=== PATIENT | female | born 1950 | race Caucasian/White ===

== ENCOUNTER → 2016-07-31 | Day surgery (SDC) | payer BC ==
[2016-07-24 10:02] VITALS: Ht 170.2 cm; Wt 88.6 kg
--- NOTE | 2016-07-27 07:40 | CONSULTATION REPORT ---
DATE OF CONSULTATION: 07/24/2016 PREOPERATIVE CONSULTATION NOTE A 66-year-old female scheduled to undergo right cataract surgery on 07/31/2016. MEDICAL PROBLEMS: Include: 1. Dyspepsia. 2. Anxiety and panic disorder. 3. History of colonic polyps. Underwent a radical right colon and transverse colectomy with primary hbou-qw-tldj anastomosis and repair of an incarcerated umbilical hernia by Dr. Rebollar on 02/24/2015. 4. Left cataract surgery on 10/06/2013. 5. Asymptomatic cholelithiasis CURRENT MEDICATIONS: Include: 1. Aspirin 81 mg daily. 2. Protonix 40 mg every other day. 3. Vitamin D 1000 International Units daily. 4. Advil, she takes about 3 tablets daily as needed. 5. Klonopin 0.5 mg 3 times a day. 6. Benadryl 25 mg at bedtime. Overall, she is doing well. She is still working. She is a nonsmoker. She just took 3 days off work because she was going to lose the days. She is resting at home. She denied any headache. No dizziness, no lightheadedness. Decreased vision. She wears glasses. As noted, she is scheduled for her right cataract surgery. Also, she is going to need laser treatment on her left eye which is scheduled on 08/07/2016. Denied any earache, sore throat or neck pain. No chest pain, pressure or tightness. No shortness of breath. No cough. No pain in her breasts. Her last mammogram was on 06/19/2016. No abdominal pain, no nausea, no vomiting. No problem with her bowel movements. No problem urinating. No pain in her back or extremities. PHYSICAL EXAMINATION: GENERAL: Well developed, in no distress. Her weight 199.8 pounds, height 67 inches, BMI 31.29. VITAL SIGNS: Blood pressure 128/70, pulse 80 with occasional premature beat, temperature 98.2. SKIN: Warm and dry. No rash. HEENT: Status post left cataract surgery. Decreased vision right eye. Normal oronasal and pharyngeal mucosa. Normal external ear canals and tympanic membranes. HEART: Regular heart sounds. No murmur, rub or gallop. LUNGS: Clear. ABDOMEN: Soft, nontender. No organomegaly, no masses. Surgical scars. BACK: No spinal tenderness. EXTREMITIES: No edema, clubbing or cyanosis. No joint or muscle tenderness. Good pulses. NEUROLOGIC: She is alert and oriented without evidence of any deficits. ASSESSMENT: 1. Right cataract. She is scheduled for surgery on 07/31/2016. 2. History of left cataract surgery on 10/06/2013. 3. Anxiety and panic disorder, stable. 4. Osteoarthritis. 5. History of colonic polyps, requiring surgery. She had a radical right colon and transverse colectomy with primary stli-bb-wqef anastomosis on 02/24/2015. At the same time, she had repair of an incarcerated umbilical hernia. 6. Overweight. 7. Asymptomatic cholelithiasis PLAN: 1. She is doing quite well. Her condition is quite stable. She has had previously documented PVCs. She has had a stress test in 2014. 2. There is no contraindication to her anticipated surgical procedure. [place]
[~2016-07-31] VITALS: Ht 170.2 cm; Wt 88.6 kg
[~2016-07-31] MED LIST: 500ML BSS 0.3ML EPI 1:1000PF IRRIG ONE; ACETAMINOPHEN 325 MG TAB PO PRN; AMOX500C3 PO; AMVISC PLUS 0.8ML SYRINGE INT OCU ONE; ASPI81TA28 PO; ATROPINE SULFATE 0.1 MG/ML 5ML SYR IV PRN; BND25 PO; BSS FLUSH ONE; CARB0.5D28 OPB; CHOL100010 PO; CHOL100027 PO; CLON0.5T3 PO; CYCL10TA6 PO; DIPH25CA65 PO; EpHEDrine SULFATE INJ 50 MG/ML AMP IV PRN; EpINEphrine INJ 1MG/ML AMP 1 MG/ML AMP ONE; FENTANYL CITRATE INJ 50 MCG/1 ML 2 ML VIAL IV PRN; FLUMAZENIL 0.1 MG/1 ML 10 ML VIAL IV PRN; HYDROmorphone INJ 2 MG/ML SYR/VIAL IV PRN; IBUP-1050 PO; LABETALOL HCL IV 5 MG/ML 20ML IV PRN; LACTATED RINGER'S 1000ML 500 ML IV SCH; LIDOCAINE 3.5% OPH GEL PER APPLICATION CHARGE ONE; LIDOCAINE HCL 1% MPF 2 ML VIAL ONE; MAGNESIUM PO; MEPERIDINE HCL 25 MG/ML CARP IV PRN; MIDAZOLAM HCL 1 MG/ML 2ML VIAL ONE; NALOXONE HCL 0.4 MG/1 ML VIAL/CARP IV PRN; NF34 TOP; OCUCOAT 1 ML SOLN IO ONE; ONDANSETRON INJ 2 MG/ML 2 ML VIAL IV PRN; OXYC-57 PO; OXYC1TAB3 PO; PANT40TA PO; PHENYLEPHRINE 100MCG/ML 5ML SYR IV PRN; POVIDONE-IODINE OP SOLN 30 ML BTL ONE; PROPARACAINE 0.5% OP SOLN PER DROP CHARGE OPR SCH; TOBRAMYCIN/DEXAMETHASONE OPH OINT PER APPLN CHARGE ONE
[2016-07-31] MEDS: PHENYLEPHRINE HCL 2.5% OP SOLN PER DROP CHARGE OPR SCH ×2 (06:31→06:36)
[2016-07-31] MEDS: TROPICAMIDE 1% OP SOLN PER DROP CHARGE OPR SCH ×2 (06:32→06:37)
[2016-07-31] MEDS: CYCLOPENTOLATE HCL 1% OP SOLN PER DROP CHARGE OPR SCH ×2 (06:33→06:38)
[2016-07-31] MEDS: KETOROLAC 0.5% OP SOLN PER DROP CHARGE OPR SCH ×2 (06:34→06:39)
[2016-07-31] MEDS: GATIFLOXACIN OP SOLN PER DROP CHARGE OPR SCH ×2 (06:35→06:45)
--- NOTE | 2016-07-31 06:57 | History & Physical Bridge - SC ---
H&P Re-Evaluation Bridge Note: I have examined the patient, reviewed the History & Physical and in the interval since the performance of the History & Physical I have noted the following changes of clinical significance: No changes noted
--- NOTE | 2016-07-31 07:21 | [facility] Operative Report ---
Operative Report 1. PREOPERATIVE DIAGNOSIS: Cataract of the right eye. 2. POSTOPERATIVE DIAGNOSIS: Same. 3. PROCEDURE: Phacoemulsification with intraocular lens implantation of the right eye. SURGEON: Dr. Blake Black. ANESTHESIA: Topical Lidocaine gel, 1% Non- Preserved intracameral Lidocaine, and monitored intravenous sedation. INDICATIONS FOR THE PROCEDURE: The patient is a 66 - year-old female with a history of cataract of the right eye causing significant visual impairment. The details of the proposed procedure were explained to the patient who asked appropriate questions and following discussion of all risks, benefits and alternatives agreed to have the procedure done. 4. OPERATION AND FINDINGS: DESCRIPTION OF PROCEDURE: After informed consent was obtained, the patient was brought to the Operating Room at the [facility]. The patient was placed in a supine position and then the right eye was prepped and draped in the usual sterile fashion for intraocular surgery. A drop of topical Lidocaine gel was placed in the operative eye. A wire lid speculum was then placed in the fornices. A corneal paracentesis was then created temporally. The Non-Preserved Lidocaine was then instilled into the anterior chamber. The anterior chamber was then pressurized with viscoelastic. A 2.0 mm clear corneal incision was then created temporally. A cystotome was inserted into the anterior chamber and used to create a tear in the anterior lens capsule. This capsular tear was then used to create a small flap and the flap was dragged in a counterclockwise direction in order to create a continuous curvilinear capsulorrhexis. Hydrodissection was accomplished with balanced salt solution. Phacoemulsification of the lens nucleus was then performed in a standard ljoune-rml-rbhedjp technique. The phaco time was 29 seconds with an average power of 10 %. The remaining cortical material was removed using irrigation aspiration. The capsular bag was then filled with viscoelastic. A [employer] MI60L +20.0 diopters lens was then loaded into the injector and injected into the capsular bag. The remaining viscoelastic was removed with the irrigation aspiration handpiece. The wound was hydrated and then checked and found to be watertight. The intraocular pressure was checked and found to be adequate. The wire lid speculum was removed and the patient's face was cleaned and dried. TobraDex ointment was placed in the inferior fornix. The patient was discharged to the Recovery Room having tolerated the procedure well. There were no complications. The patient will be seen tomorrow in the office for follow-up. I attest to the content of the Intraoperative Record and any orders documented therein. Any exceptions are noted below.
--- NOTE | 2016-07-31 07:21 | Discharge Instructions-SurgCtr ---
Discharge Instructions Visit Reason for Visit: Cataract Right Eye Discharge Discharge Diagnosis / Problem: cataract Discharge Goals Goal(s): Improve function Activity Recommendations Activity Limitations: per Instructions/Follow-up section Anesthesia . Post Anesthesia Instructions: If you have had General Anesthesia or IV Sedation: * Do not drive today. * Resume driving when surgeon permits. * Do not make important decisions or sign legal documents today. * Call surgeon for: 1. Temperature elevations greater than 101 degrees F. 2. Uncontrollable pain. 3. Excessive bleeding. 4. Persistent nausea and vomiting. 5. Medication intolerance (nausea, vomiting or rash). * For nausea and vomiting use only clear liquids such as: tea, soda, bouillon until nausea subsides, then gradually increase diet as tolerated. * If you have any concerns or questions, call your surgeon's office. If physician is unavailable and it is an emergency, call 911 or go to the nearest emergency room. . Instructions / Follow-Up Instructions / Follow-Up ACTIVITY RECOMMENDATIONS: * No strenuous lifting, jogging or running for 4 days * No swimming or yard work for 1 week. * Limited bending is permitted, such as putting on shoes. RETURN TO SCHOOL/WORK: No work until seen by physician in office. MEDICATIONS: Resume previous medications unless instructed otherwise by your surgeon. This includes eye drops for glaucoma. Zymaxid/Gatifloxacin (brown cap) - one drop every 2 hours until bedtime Nevanac/Ilevro/Prolensa/Ketorolac (steiner cap) - one drop every 4 hours until bedtime Prednisolone (white/pink cap, SHAKE WELL) - one drop every 2 hours until bedtime Starting tomorrow - all 3 drops every 4 hours until seen in the office Optive drops - as needed for discomfort SPECIAL CARE INSTRUCTIONS: * Wear eyeshield when sleeping, for four nights. * You may wear your own glasses or sunglasses while awake. * You may read or watch TV * You may shower and wash your face, but be gentle around the eye and pat dry. * Blurry vision and mild irritation are normal. * Call office if pain is more severe or vision becomes dark at . FOLLOW UP VISIT: Follow-up with Dr Black tomorrow. Diet Recommendations Home Diet: resume previous diet Procedures Procedures Performed: Right Cataract Phacoemulsification With Intraocular Lens Implant Pending Studies Studies pending at discharge: no Medical Emergencies . Who to Call and When: Medical Emergencies: If at any time you feel your situation is an emergency, please call 911 immediately. . Non-Emergent Contact Non-Emergency issues call your: [employer] . . "Provider Documentation" section prepared by Blake Black.
[2016-07-31 07:29] VITALS: TEMP 36.9
--- NOTE | 2016-07-31 07:29 | Anesthesia Progress Nt - [facility] ---
Anesthesia Post Op Note Date & Time Jul 31, 2016 at 07:29 Vital Signs Pain Intensity: 0 Vital Signs Past 12 Hours Date Time Temp Pulse Resp B/P Pulse Ox O2 Delivery O2 Flow Rate FiO2 07/31/16 06:31 36.7 52 16 165/76 96 Room Air Notes Mental Status: alert / awake / arousable, participated in evaluation Pt Amnestic to Procedure: Yes Nausea / Vomiting: adequately controlled Pain: adequately controlled Airway Patency, RR, SpO2: stable & adequate BP & HR: stable & adequate Hydration State: stable & adequate Anesthetic Complications: no major complications apparent
[2016-07-31 07:45] VITALS: BP 138/62; PULSE 59; O2SAT 96
== END | disposition home or self-care (01) ==
LOC: X.SURG 06:07
PROVIDERS: ATTEND Ophthalmology
DX: H26.9 Unspecified cataract (principal); H54.7 Unspecified visual loss; F41.9 Anxiety disorder, unspecified; Z86.010 Personal history of colon polyps; Z90.49 Acquired absence of other specified parts of digestive tract

== ENCOUNTER 2016-10-17 21:42 | Emergency (ER) | payer BC ==
[~2016-10-17] VITALS: Ht 175.3 cm; Wt 89.9 kg
[~2016-10-17 21:42] MED LIST changes: -500ML BSS 0.3ML EPI 1:1000PF IRRIG ONE; -ACETAMINOPHEN 325 MG TAB PO PRN; -AMOX500C3 PO; -AMVISC PLUS 0.8ML SYRINGE INT OCU ONE; -ATROPINE SULFATE 0.1 MG/ML 5ML SYR IV PRN; -BND25 PO; -BSS FLUSH ONE; -CHOL100027 PO; -CYCL10TA6 PO; +DIPH25CA5 PO; -DIPH25CA65 PO; -EpHEDrine SULFATE INJ 50 MG/ML AMP IV PRN; -EpINEphrine INJ 1MG/ML AMP 1 MG/ML AMP ONE; -FENTANYL CITRATE INJ 50 MCG/1 ML 2 ML VIAL IV PRN; -FLUMAZENIL 0.1 MG/1 ML 10 ML VIAL IV PRN; -HYDROmorphone INJ 2 MG/ML SYR/VIAL IV PRN; -LABETALOL HCL IV 5 MG/ML 20ML IV PRN; -LACTATED RINGER'S 1000ML 500 ML IV SCH; -LIDOCAINE 3.5% OPH GEL PER APPLICATION CHARGE ONE; -LIDOCAINE HCL 1% MPF 2 ML VIAL ONE; -MAGNESIUM PO; -MEPERIDINE HCL 25 MG/ML CARP IV PRN; -MIDAZOLAM HCL 1 MG/ML 2ML VIAL ONE; -NALOXONE HCL 0.4 MG/1 ML VIAL/CARP IV PRN; -OCUCOAT 1 ML SOLN IO ONE; -ONDANSETRON INJ 2 MG/ML 2 ML VIAL IV PRN; -OXYC-57 PO; -OXYC1TAB3 PO; -PHENYLEPHRINE 100MCG/ML 5ML SYR IV PRN; -POVIDONE-IODINE OP SOLN 30 ML BTL ONE; -PROPARACAINE 0.5% OP SOLN PER DROP CHARGE OPR SCH; -TOBRAMYCIN/DEXAMETHASONE OPH OINT PER APPLN CHARGE ONE
[2016-10-17 21:54] VITALS: TEMP 36.9; Ht 175.3 cm; Wt 89.9 kg
[2016-10-17] MEDS ORDERED: OXYCODONE HCL IR 5 MG TAB (IMMEDIATE RELEASE) PO STA (22:23)
[2016-10-17] MEDS ORDERED: CYCLOBENZAPRINE HCL 10 MG TAB PO STA (22:23)
[2016-10-17] MEDS ORDERED: CHOL100027 PO (22:27)
[2016-10-17 22:48] LABS: URINE APPEARANCE CLEAR (CLEAR); URINE BILIRUBIN NEG (NEG); URINE COLOR YELLOW; URINE EPITHELIAL CELL AUTO 20-30 /lpf (0-5); URINE NITRITE NEG (NEG); UROBILINOGEN NEG (NEG); ZZUR CULT IF INDIC CLEAN CATCH YES
[2016-10-17 22:50] LABS: MANUAL MICROSCOPIC REQUIRED? NO; REVIEW REQ? NO
--- NOTE | 2016-10-17 22:55 | DIAGNOSTIC IMAGING REPORT ---
LUMBAR SPINE 5 VIEWS HISTORY: Pain low back pain COMPARISON: None. FINDINGS: Moderate scoliosis. Significant degenerative disc changes throughout. No evidence for compression deformity. IMPRESSION: Scoliosis. Significant degenerative disc change. No acute process. Electronically signed by: Chemo Jones M.D. 10/17/2016 10:53 PM Dictated Date/Time: 10/17/2016 10:52 PM
[2016-10-17] MEDS ORDERED: MoRPHine SULFATE 10 MG/ML CARP/VIAL IV STA (23:26)
[2016-10-17] MEDS ORDERED: ONDANSETRON INJ 2 MG/ML 2 ML VIAL IV STA (23:26)
[2016-10-18] MEDS ORDERED: OXYC1TAB3 PO (00:09)
[2016-10-18] MEDS ORDERED: CYCL10TA6 PO (00:12)
--- NOTE | 2016-10-18 00:13 | EMERGENCY ROOM VISIT NOTE ---
History First contact with patient: 22:00 Chief Complaint: BACK PAIN Stated Complaint: LOWER LEFT BACK PAIN History of Present Illness The patient is a 66 year old female who presents to the Emergency Room with complaints of left low back pain which started on Saturday. The patient states that she went to work on Saturday and then she came home and took a mile walk and after she was finished walking she started getting pain in the left lower back. The patient denies any pain radiating down her legs or any numbness and tingling. The patient denies any fever. Patient denies any urinary symptoms of frequency, urgency, dysuria or hematuria. The patient denies a history of kidney stones. The patient does admit to some nausea but denies any vomiting. The patient states that she went to the chiropractor today and had an adjustment without any relief. He did an x-ray and told her that he was surprised she was not in more significant pain. She has a follow-up appointment scheduled on Saturday. Review of Systems 10 system review was performed and was negative unless stated otherwise history of present illness. Past Medical/Surgical History Medical Problems: (1) History of - hypertension Family History FHx: gallbladder disease Kidney disease Kidney stones Social History Smoking Status: Former Smoker Alcohol Use: none Drug Use: none Marital Status: Housing Status: lives with family Occupation Status: retired Current/Historical Medications Scheduled Aspirin (Aspirin Ec), 81 MG PO QAM Cholecalciferol (Vitamin D 1000 Unit), 1,000 INTER.UNIT PO QAM Clonazepam (Klonopin), 0.5 MG PO TID Diphenhydramine Hcl (Benadryl), 25 MG PO HS Scheduled PRN Carboxymethylcellulose Sodium (Refresh Tears), 1 DROP OPB DAILY PRN for DRY EYES Clobetasol Propionate (Clobetasol Propionate), 1 APPLN TOP 2XWK PRN for PRN Ibuprofen (Advil), 600 MG PO QAM PRN for Pain Pantoprazole (Protonix), 40 MG PO DAILY PRN for PRN Allergies Coded Allergies: BEE STING (Verified Allergy, Intermediate, ITCHY, STARTS TO BLACK OUT, ) Celecoxib (Verified Allergy, Intermediate, RASH, 10/17/16) Corticosteroids (Verified Adverse Reaction, Intermediate, FEELS "WEIRD.", 10/17/16) Naproxen (Verified Adverse Reaction, Intermediate, HEART RACES, 10/17/16) Physical Exam Vital Signs Date Time Temp Pulse Resp B/P Pulse Ox O2 Delivery O2 Flow Rate FiO2 10/17/16 23:26 59 18 166/81 96 Room Air 10/17/16 21:54 36.9 62 18 197/91 95 Room Air Physical Exam PHYSICAL EXAM: Vital Signs normal: Reviewed Nurse's notes and agree. GENERAL: 66-year-old white female appears in no acute distress. MENTAL STATUS: Alert and oriented in no acute distress. LUNGS: Clear auscultation without wheezes rales or rhonchi. CARDIAC: Regular rate and rhythm without murmur. BACK: No CVA tenderness noted. ABDOMEN: Positive bowel sounds all 4 quadrants soft, nontender to palpation without organomegaly or masses. LUMBAR SPINE: Scoliosis noted Patient is nontender to palpation over the spinous processes. She is tender to palpation over the left paravertebral region, right side nontender. Limited range of motion in all directions secondary to pain. . Muscle strength is 5 out of 5 bilateral lower extremities and symmetrical. NEURO: Patient is able to heel and toe walk without difficulty. I lateral patellar and Achilles reflexes are 2+. Sensation is intact to pinprick bilateral lower extremities. Negative straight leg raise bilaterally. Medical Decision & Procedures ER Provider Diagnostic Interpretation: LUMBAR SPINE 5 VIEWS HISTORY: Pain low back pain COMPARISON: None. FINDINGS: Moderate scoliosis. Significant degenerative disc changes throughout. No evidence for compression deformity. IMPRESSION: Scoliosis. Significant degenerative disc change. No acute process. Electronically signed by: Chemo Jones M.D. 10/17/2016 10:53 PM Laboratory Results Test 10/17/16 22:20 Urine Color YELLOW Urine Appearance CLEAR (CLEAR) Urine pH 7.0 (4.5-7.5) Urine Specific [place] 1.010 (1.000-1.030) Urine Protein NEG (NEG) Urine Glucose (UA) NEG (NEG) Urine Ketones NEG (NEG) Urine Occult Blood NEG (NEG) Urine Nitrite NEG (NEG) Urine Bilirubin NEG (NEG) Urine Urobilinogen NEG (NEG) Urine Leukocyte Esterase LARGE (NEG) Urine WBC (Auto) 10-30 /hpf (0-5) Urine RBC (Auto) 0-4 /hpf (0-4) Urine Hyaline Casts (Auto) 1-5 /lpf (0-5) Urine Epithelial Cells (Auto) 20-30 /lpf (0-5) Urine Bacteria (Auto) 1+ (NEG) Medications Administered Medications (Trade) Dose Ordered Sig/Kate Route Start Time Stop Time Status Last Admin Dose Admin Cyclobenzaprine HCl (Flexeril Tab) 10 mg NOW STAT PO 10/17/16 22:23 10/17/16 22:26 DC 10/17/16 22:45 10 MG Oxycodone HCl (Roxicodone Immediate Rel Tab) 10 mg NOW STAT PO 10/17/16 22:23 10/17/16 22:26 DC 10/17/16 22:44 10 MG Morphine Sulfate (MoRPHine SULFATE INJ) 6 mg NOW STAT IV 10/17/16 23:26 10/17/16 23:27 DC 10/17/16 23:32 6 MG Ondansetron HCl (Zofran Inj) 4 mg NOW STAT IV 10/17/16 23:26 10/17/16 23:27 DC 10/17/16 23:32 4 MG ED Course The patient was evaluated. The patient was given Flexeril 10 mg by mouth and OxyIR 10 mg by mouth for pain. X-rays of the lumbar spine were ordered and interpreted by the radiologist and myself as above with findings of scoliosis and moderate degenerative changes.. Urinalysis was ordered and revealed positive leukocytes and bacteria although there was some evidence of contamination with epithelial cells. Urine will be sent for culture. The patient was informed of all findings and was reevaluated. The patient states she did not have any change in pain. The patient was therefore given morphine 6 mg IV and Zofran 4 mg IV for associated nausea. I also discussed with the patient that there was a large amount of stool within her colon and that she should start taking MiraLAX daily. The patient verbalized understanding. The patient was again reevaluated and was feeling slightly better. The patient thought she was able to go home at this time. The patient was discharged home in stable condition. Medical Decision Differential diagnosis include muscular strain, osteoarthritis, kidney stone, pyelonephritis, UTI, constipation Impression Primary Impression: Low back pain Departure Information Dispostion Home / Self-Care Condition GOOD Prescriptions Cyclobenzaprine Hcl (FLEXERIL) 10 Mg Tab 10 MG PO TID for 7 Days, #21 TAB Prov: Pat Jones, MILADYS 4/20/17 Oxycodone Immediate Rel Tab (ROXICODONE IR) 5 Mg Tab 1-2 TAB PO Q6 Y for Pain, #20 TAB Prov: Pat Jones PA-C 10/18/16 Referrals Isaac Alexander M.D. (PCP) Forms HOME CARE DOCUMENTATION FORM, IMPORTANT VISIT INFORMATION Patient Instructions My [facility] Additional Instructions There is not a definitive etiology for your low back pain. Rest as much as possible but do not stay in any one position for extended period of time. Try ice and/or heat intermittently whichever makes it feel better. Take Flexeril as directed. Take OxyIR as needed for pain. Do not drive while taking the OxyIR. Recommend taking MiraLAX daily to prevent constipation. Call in 36 hours for your urine culture results. Recommend follow-up with your family physician in 2 days for recheck. I would refrain from seeing the chiropractor until rechecked by her family doctor in 2 days. If symptoms worsen in the interim, return to ER.
[2016-10-18 00:26] VITALS: BP 137/61; PULSE 55; O2SAT 93
[2016-10-18] MEDS ORDERED: NORCO 5/325MG HOME PACK PO ONE (00:30)
[2017-01-14] MEDS ORDERED: MAGNESIUM PO (08:20)
[2017-01-14] MEDS ORDERED: DIPH25CA65 PO (08:20)
[2017-01-14] MEDS ORDERED: AMOX500C3 PO (08:28)
== END 2016-10-18 00:28 | disposition home or self-care (01) ==
LOC: C.EDB 21:43
DX: M54.5 Low back pain (principal); I10 Essential (primary) hypertension; Z87.891 Personal history of nicotine dependence; Z79.82 Long term (current) use of aspirin; Z79.899 Other long term (current) drug therapy; Z79.83 Long term (current) use of bisphosphonates; Z84.1 Family history of disorders of kidney and ureter; Z88.8 Allergy status to other drugs, medicaments and biological substances; Z91.030 Bee allergy status

== ENCOUNTER 2016-10-21 15:06 | Emergency (ER) | payer BC ==
[~2016-10-21] VITALS: Ht 170.2 cm; Wt 90.0 kg
[~2016-10-21 15:06] MED LIST changes: -CHOL100010 PO; +CHOL100027 PO; +CYCL10TA6 PO; +OXYC1TAB3 PO
[2016-10-21 15:30] VITALS: TEMP 37; Ht 170.2 cm; Wt 90.0 kg
[2016-10-21] MEDS ORDERED: OXYC1TAB3 PO (15:53)
[2016-10-21] MEDS ORDERED: KETOROLAC TROMETHAMINE 30 MG/ML VIAL IV STA (16:14)
[2016-10-21] MEDS ORDERED: SODIUM CHLORIDE 0.9% 1000ML 1,000 ML IV STA (16:14)
[2016-10-21] MEDS ORDERED: SODIUM CHLORIDE 0.9% 1000ML 250 ML IV STA (16:14)
--- NOTE | 2016-10-21 16:25 | EMERGENCY ROOM VISIT NOTE ---
History Report prepared by Arlene: Navin Bailey Under the Supervision of: Dr. Zak Carreno M.D. First contact with patient: 16:06 Chief Complaint: BACK PAIN Stated Complaint: PAIN LOWER LEFT BACK- KIDNEY AREA History of Present Illness The patient is a 66 year old female who presents to the Emergency Room with complaints of persistent left lower back pain that started six days ago. The pain sometimes radiates to the hip and groin area and is rated 8/10 in severity. She is concerned that the pain is coming form her left kidney. The patient was in the ED four nights ago and tested negative for UTI. The patient was started on Cipro three days ago. The patient also notes urinary urgency and feeling like she cannot empty her bladder. She denies hematuria, burning with urination, or weakness or numbness of the legs, or rashes. She does complain of intermittent chills and nausea but denies specific fevers or vomiting. She denies recent trauma or injury of the back. The patient denies any personal history of kidney disease. She does have a family history of kidney stones. She has a history of arthritis and is s/p partial colectomy for polyps. The patient is not on any blood thinners other than baby aspirin. She follows up with Dr. Nelson. Source of History: patient Onset: six days ago Position: back (lower) Symptom Intensity: 8/10 Timing: other (persistent) Associated Symptoms: + chills, + nausea, + urinary symptoms (urgency, no hematuria or dysuria), No fevers, No numbness, No rash, No vomiting, No weakness Review of Systems See HPI for pertinent positives & negatives. A total of 10 systems reviewed and were otherwise negative. Past Medical & Surgical Medical Problems: (1) History of - hypertension Old medical records were reviewed. Nurse's notes were reviewed and I agree with. Family History FHx: gallbladder disease Kidney disease Kidney stones Social History Smoking Status: Never Smoker Alcohol Use: none Drug Use: none Marital Status: Housing Status: lives with family Occupation Status: retired Current/Historical Medications Scheduled Aspirin (Aspirin Ec), 81 MG PO QAM Cholecalciferol (Vitamin D 1000 Unit), 1,000 INTER.UNIT PO 2XWK Clonazepam (Klonopin), 0.5 MG PO TID Diphenhydramine Hcl (Benadryl), 25 MG PO HS Oxycodone Immediate Rel Tab (Roxicodone Ir), 1 TAB PO HS Scheduled PRN Carboxymethylcellulose Sodium (Refresh Tears), 1 DROP OPB DAILY PRN for DRY EYES Clobetasol Propionate (Clobetasol Propionate), 1 APPLN TOP WK PRN for PRN Ibuprofen (Advil), 600 MG PO QAM PRN for Pain Pantoprazole (Protonix), 40 MG PO Q2D PRN for PRN Allergies Coded Allergies: BEE STING (Verified Allergy, Intermediate, ITCHY, STARTS TO BLACK OUT, ) Celecoxib (Verified Allergy, Intermediate, RASH, 10/21/16) Corticosteroids (Verified Adverse Reaction, Intermediate, FEELS "WEIRD.", 10/21/16) Naproxen (Verified Adverse Reaction, Intermediate, HEART RACES, 10/21/16) Physical Exam Vital Signs Date Time Temp Pulse Resp B/P Pulse Ox O2 Delivery O2 Flow Rate FiO2 10/21/16 18:09 62 18 154/74 98 Room Air 10/21/16 17:01 77 16 151/73 10/21/16 15:30 37.0 63 20 182/74 93 Room Air Physical Exam General: Non ill appearing older female in no acute distress, breathing comfortably on room air. Normal speech HEENT: Normal cephalic atraumatic. Pupils are equal round and reactive to light. Extraocular movements are intact. Oropharynx is pink with moist mucous membranes. No swelling of the mouth lips or tongue. Neck: Supple with a midline trachea. No meningeal signs or stiffness, no JVD or bruits. No Stridor. Chest: Clear to auscultation bilaterally. No wheezes or rhonchi. No increased work of breathing. Heart: regular rate and rhythm. Abdomen: Soft nontender, nondistended without rebound guarding or rigidity. No palpable masses, no redness or warmth. Extremities: No cyanosis clubbing or edema. No calf tenderness or assymetry Spine/Back. Non tender to palpation. No CVA tenderness. No rashes. Skin: Good turgor without rashes. Neurologic exam: Cranial nerves two through 12 are intact. Motor and sensation are intact and symmetrical throughout. Medical Decision & Procedures ER Provider Diagnostic Interpretation: Radiology results as stated below per my review and radiologist interpretation: ABDOMEN AND PELVIS CT WITHOUT CONTRAST CT DOSE: 1311.77 mGy.cm HISTORY: eval for stone, left flank pain TECHNIQUE: Multiaxial CT images of the abdomen and pelvis were performed without the use of intravenous and oral contrast according to the standard department stone protocol. COMPARISON STUDY: Abdomen and pelvis CT 04/11/2016. FINDINGS: No renal stones or hydronephrosis. 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 The duplicated ureters likely joint proximal to the ureterovesical junction. The unenhanced liver, spleen, adrenal glands, and pancreas are unremarkable. There is a 7 mm gallstone. There is a small diverticulum at the second portion of the duodenum. The bladder is unremarkable. Prior hysterectomy. Suboptimal evaluation for bowel pathology due to the lack of intravenous and oral contrast. However, there is no definite bowel wall thickening or obstruction. Postoperative changes consistent with prior right hemicolectomy. The lung bases are clear. No pneumoperitoneum. No pneumatosis. Interval development of a midline infraumbilical hernia containing a short segment of small bowel. IMPRESSION: 1. No renal stones or hydronephrosis. 2. Suboptimal evaluation for bowel pathology due to the lack of intravenous and oral contrast. However, there is no definite bowel wall thickening or obstruction. Interval development of a midline infraumbilical hernia containing a short segment of small bowel. 3. Cholelithiasis. 4. Postoperative changes as described above. Electronically signed by: Sang Mercer M.D. 10/21/2016 5:46 PM Dictated Date/Time: 10/21/2016 5:34 PM Laboratory Results 10/21/16 16:55 Red Blood Count 4.36, Mean Corpuscular Volume 90.4, Mean Corpuscular Hemoglobin 29.8, Mean Corpuscular Hemoglobin Concent 33.0, Mean Platelet Volume 9.6, Neutrophils (%) (Auto) 50.6, Lymphocytes (%) (Auto) 36.5, Monocytes (%) (Auto) 8.5, Eosinophils (%) (Auto) 3.6, Basophils (%) (Auto) 0.7, Neutrophils # (Auto) 3.56, Lymphocytes # (Auto) 2.57, Monocytes # (Auto) 0.60, Eosinophils # (Auto) 0.25, Basophils # (Auto) 0.05 10/21/16 16:55 Test 10/21/16 16:55 10/21/16 17:03 White Blood Count 7.04 K/uL (4.8-10.8) Red Blood Count 4.36 M/uL (4.2-5.4) Hemoglobin 13.0 g/dL (12.0-16.0) Hematocrit 39.4 % (37-47) Mean Corpuscular Volume 90.4 fL (80-100) Mean Corpuscular Hemoglobin 29.8 pg (25-34) Mean Corpuscular Hemoglobin Concent 33.0 g/dl (32-36) Platelet Count 298 K/uL (130-400) Mean Platelet Volume 9.6 fL (7.4-10.4) Neutrophils (%) (Auto) 50.6 % Lymphocytes (%) (Auto) 36.5 % Monocytes (%) (Auto) 8.5 % Eosinophils (%) (Auto) 3.6 % Basophils (%) (Auto) 0.7 % Neutrophils # (Auto) 3.56 K/uL (1.4-6.5) Lymphocytes # (Auto) 2.57 K/uL (1.2-3.4) Monocytes # (Auto) 0.60 K/uL (0.11-0.59) Eosinophils # (Auto) 0.25 K/uL (0-0.5) Basophils # (Auto) 0.05 K/uL (0-0.2) RDW Standard Deviation 46.5 fL (36.4-46.3) RDW Coefficient of Variation 14.1 % (11.5-14.5) Immature Granulocyte % (Auto) 0.1 % Immature Granulocyte # (Auto) 0.01 K/uL (0.00-0.02) Anion Gap 6.0 mmol/L (3-11) Est Creatinine Clear Calc Drug Dose 52.4 ml/min Estimated GFR () 54.2 Estimated GFR (Non- 46.7 BUN/Creatinine Ratio 13.8 (10-20) Calcium Level 9.3 mg/dl (8.5-10.1) Urine Color YELLOW Urine Appearance CLEAR (CLEAR) Urine pH 6.5 (4.5-7.5) Urine Specific [place] 1.011 (1.000-1.030) Urine Protein NEG (NEG) Urine Glucose (UA) NEG (NEG) Urine Ketones NEG (NEG) Urine Occult Blood NEG (NEG) Urine Nitrite NEG (NEG) Urine Bilirubin NEG (NEG) Urine Urobilinogen NEG (NEG) Urine Leukocyte Esterase SMALL (NEG) Urine WBC (Auto) 1-5 /hpf (0-5) Urine RBC (Auto) 0-4 /hpf (0-4) Urine Hyaline Casts (Auto) 0 /lpf (0-5) Urine Epithelial Cells (Auto) 20-30 /lpf (0-5) Urine Bacteria (Auto) NEG (NEG) Date/Time Source Procedure Growth Status 10/21/16 17:03 Urine , Clean Catch Urine Culture - Final THREE TYPES OF ORGANSIMS PRESENT, ALL... Complete Laboratory studies as stated above per my review. Medications Administered Medications (Trade) Dose Ordered Sig/Kate Route Start Time Stop Time Status Last Admin Dose Admin Sodium Chloride 250 ml @ 999 mls/hr Q16M STAT IV 10/21/16 16:14 10/21/16 16:29 DC 10/21/16 17:00 999 MLS/HR Sodium Chloride (Nss 1000ml) 1,000 ml @ 100 mls/hr Q10H STAT IV 10/21/16 16:14 10/21/16 18:25 DC 10/21/16 16:14 100 MLS/HR Ketorolac Tromethamine (Toradol Inj) 30 mg NOW STAT IV 10/21/16 16:14 10/21/16 16:16 DC 10/21/16 17:00 30 MG ED Course 1607: Past medical records reviewed. The patient was evaluated in room C4, and a complete history and physical examination were performed. 1614: Toradol 30 mg IV, NSS 1000 ml @ 100 mls/hr, NSS 250 ml @ 999 mls/hr. 1735: The patient is resting comfortably. 1800: Reassessed the patient. Discussed the discharge instructions with her. She verbalized understanding and agreement. The patient is ready for discharge. Medical Decision Differential diagnosis includes lumbar disc disease, musculoskeletal pain, kidney stone, kidney infection, aneurysm, electrolyte or metabolic abnormality. This patient comes in as described above. She is having ongoing left flank pain. She was concerned that it could be her kidney so returns for further evaluation. She's had no fever or chills and it is worse with movement. She does has ahistory of scoliosis. She's had nothing to suggest cauda equina syndrome. She has no fever or chills or signs of infection. IV access established blood work was obtained I did a CAT scan. There is no evidence suggest obstructive uropathy or acute renal problems. She did receive Toradol IV and is feeling much better. She has normal renal function. She is on antibiotics which I encouraged her to finish. She should return if: worsening of symptoms, fever or chills, any new problems or concerns. She should follow- up with her regular doctor medical days for recheck. She was happy with plan discharged to home. Impression Primary Impression: Left-sided back pain Scribe Attestation The scribe's documentation has been prepared under my direction and personally reviewed by me in its entirety. I confirm that the note above accurately reflects all work, treatment, procedures, and medical decision making performed by me. Departure Information Dispostion Home / Self-Care Referrals No Doctor, Assigned (PCP) Forms HOME CARE DOCUMENTATION FORM, IMPORTANT VISIT INFORMATION Patient Instructions My [facility] Additional Instructions Rest. Continue your current antibiotics and pain medication as previously directed. Return if: Worsening of symptoms, not tolerating fluids, any new problems or concerns. Follow-up with your doctor this week for recheck
[2016-10-21 17:03] LABS: BASO % 0.7 %; BASO ABS # 0.05 K/uL (0-0.2); COMPLETE YES; EOS % 3.6 %; HEMATOCRIT 39.4 % (37-47); IG% 0.1 %; LYMPH % 36.5 %; LYMPH ABS # 2.57 K/uL (1.2-3.4); MEAN CELL VOLUME 90.4 fL (80-100); MEAN CORPUSCULAR HEMOGLOBIN 29.8 pg (25-34); MEAN PLATELET VOLUME 9.6 fL (7.4-10.4); MONO % 8.5 %; NEUT % 50.6 %; PLATELET COUNT 298 K/uL (130-400); RED BLOOD COUNT 4.36 M/uL (4.2-5.4); WHITE BLOOD COUNT 7.04 K/uL (4.8-10.8)
[2016-10-21 17:18] LABS: BUN/CREATININE RATIO 13.8 (10-20); CALCIUM 9.3 mg/dl (8.5-10.1); CREATININE 1.2 mg/dl (0.60-1.20); POTASSIUM 3.8 mmol/L (3.5-5.1)
[2016-10-21 17:24] LABS: URINE APPEARANCE CLEAR (CLEAR); URINE BILIRUBIN NEG (NEG); URINE COLOR YELLOW; URINE EPITHELIAL CELL AUTO 20-30 /lpf (0-5); URINE NITRITE NEG (NEG); URINE PH 6.5 (4.5-7.5); URINE SPECIFIC GRAVITY 1.011 (1.000-1.030); UROBILINOGEN NEG (NEG)
[2016-10-21 17:30] LABS: MANUAL MICROSCOPIC REQUIRED? NO; REVIEW REQ? NO
--- NOTE | 2016-10-21 17:49 | DIAGNOSTIC IMAGING REPORT ---
ABDOMEN AND PELVIS CT WITHOUT CONTRAST CT DOSE: 1311.77 mGy.cm HISTORY: eval for stone, left flank pain TECHNIQUE: Multiaxial CT images of the abdomen and pelvis were performed without the use of intravenous and oral contrast according to the standard department stone protocol. COMPARISON STUDY: Abdomen and pelvis CT 04/11/2016. FINDINGS: No renal stones or hydronephrosis. 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 The duplicated ureters likely joint proximal to the ureterovesical junction. The unenhanced liver, spleen, adrenal glands, and pancreas are unremarkable. There is a 7 mm gallstone. There is a small diverticulum at the second portion of the duodenum. The bladder is unremarkable. Prior hysterectomy. Suboptimal evaluation for bowel pathology due to the lack of intravenous and oral contrast. However, there is no definite bowel wall thickening or obstruction. Postoperative changes consistent with prior right hemicolectomy. The lung bases are clear. No pneumoperitoneum. No pneumatosis. Interval development of a midline infraumbilical hernia containing a short segment of small bowel. IMPRESSION: 1. No renal stones or hydronephrosis. 2. Suboptimal evaluation for bowel pathology due to the lack of intravenous and oral contrast. However, there is no definite bowel wall thickening or obstruction. Interval development of a midline infraumbilical hernia containing a short segment of small bowel. 3. Cholelithiasis. 4. Postoperative changes as described above. Electronically signed by: Sang Mercer M.D. 10/21/2016 5:46 PM Dictated Date/Time: 10/21/2016 5:34 PM
[2016-10-21 18:09] VITALS: BP 154/74; PULSE 62; O2SAT 98
[2017-01-14] MEDS ORDERED: DIPH25CA65 PO (08:20)
[2017-01-14] MEDS ORDERED: MAGNESIUM PO (08:20)
[2017-01-14] MEDS ORDERED: AMOX500C3 PO (08:28)
== END 2016-10-21 18:15 | disposition home or self-care (01) ==
LOC: C.EDB 15:07 → C.EDC 18:15
DX: M54.9 Dorsalgia, unspecified (principal); I10 Essential (primary) hypertension; Z79.82 Long term (current) use of aspirin; Z79.899 Other long term (current) drug therapy; Z88.8 Allergy status to other drugs, medicaments and biological substances; Z91.030 Bee allergy status; Z83.79 Family history of other diseases of the digestive system; Z84.1 Family history of disorders of kidney and ureter

== ENCOUNTER 2017-01-22 05:05 | Observation (INO) | payer BC ==
[2017-01-14 08:21] VITALS: BMI 31.0
--- NOTE | 2017-01-14 08:57 | PAT Medication Instructions ---
Service Date Jan 14, 2017. Current Home Medication List Amoxicillin (Amoxil), 500 MG PO BID Aspirin (Aspirin Ec), 81 MG PO QAM Carboxymethylcellulose Sodium (Refresh Tears), 1 DROP OPB DAILY PRN for DRY EYES Cholecalciferol (Vitamin D 1000 Unit), 1,000 INTER.UNIT PO QAM Clobetasol Propionate (Clobetasol Propionate), 1 APPLN TOP WK PRN for PRN Clonazepam (Klonopin), 0.5 MG PO TID Diphenhydramine Hcl (Benadryl Allergy), 1 CAP PO HS Ibuprofen (Advil), 600 MG PO QAM PRN for Pain Pantoprazole (Protonix), 40 MG PO QAM PRN for PRN [Magnesium], 1 TAB PO HS Medication Instructions For Your Scheduled Surgery Amoxicillin (Amoxil), 500 MG PO BID (to be completed prior to surgery) - Check with surgeon for instructions: Aspirin (Aspirin Ec), 81 MG PO QAM Ibuprofen (Advil), 600 MG PO QAM PRN for Pain - Hold the following medications 24 hours prior to surgery: Clobetasol Propionate (Clobetasol Propionate), 1 APPLN TOP WK PRN for PRN - Hold the following medications the morning of surgery: Cholecalciferol (Vitamin D 1000 Unit), 1,000 INTER.UNIT PO QAM - Take the following medications the morning of surgery with a sip of water: Pantoprazole (Protonix), 40 MG PO QAM PRN for PRN Clonazepam (Klonopin), 0.5 MG PO TID Carboxymethylcellulose Sodium (Refresh Tears), 1 DROP OPB DAILY PRN for DRY EYES (if needed) - Take the following medications as scheduled the night before surgery: [Magnesium], 1 TAB PO HS Pantoprazole (Protonix), 40 MG PO QAM PRN for PRN (if needed) Diphenhydramine Hcl (Benadryl Allergy), 1 CAP PO HS Clonazepam (Klonopin), 0.5 MG PO TID Carboxymethylcellulose Sodium (Refresh Tears), 1 DROP OPB DAILY PRN for DRY EYES (if needed) If you have any questions please call us at [phone] or [phone] or [phone]
--- NOTE | 2017-01-14 09:27 | DIAGNOSTIC IMAGING REPORT ---
CHEST PREADMISSION(PA/LAT) CLINICAL HISTORY: 66 years-old Female presenting with preadmission chest x-ray. TECHNIQUE: PA and lateral views of the chest were obtained. COMPARISON: 11/12/2014. FINDINGS: Minimal atherosclerosis of the aortic arch. Cardiomediastinal silhouette otherwise normal. No focal infiltrate. No evidence of bronchial cuffing. Trace left pleural effusion. Cholecystectomy clips noted. Osseous structures demonstrate mild scoliotic curvature of the thoracic spine. IMPRESSION: 1. No acute cardiopulmonary disease. Electronically signed by: Chet Mattson M.D. 01/14/2017 9:26 AM Dictated Date/Time: 01/14/2017 9:23 AM
[2017-01-14 10:02] LABS: BASO % 0.5 %; BASO ABS # 0.03 K/uL (0-0.2); COMPLETE YES; EOS % 3.8 %; IG% 0.2 %; LYMPH % 40.1 %; LYMPH ABS # 2.55 K/uL (1.2-3.4); MEAN CELL VOLUME 88.9 fL (80-100); MEAN CORPUSCULAR HEMOGLOBIN 29.8 pg (25-34); MEAN CORPUSCULAR HGB CONC 33.5 g/dl (32-36); MEAN PLATELET VOLUME 9.8 fL (7.4-10.4); MONO % 6.6 %; NEUT % 48.8 %; PLATELET COUNT 321 K/uL (130-400); RED BLOOD COUNT 4.16 M/uL (4.2-5.4); WHITE BLOOD COUNT 6.36 K/uL (4.8-10.8)
[2017-01-14 11:01] LABS: BUN/CREATININE RATIO 24.5 (10-20); CALCIUM 9.7 mg/dl (8.5-10.1); CREATININE 1.1 mg/dl (0.60-1.20); POTASSIUM 4.3 mmol/L (3.5-5.1)
[~2017-01-22] VITALS: Ht 170.2 cm; Wt 90.6 kg
[2017-01-22] VITALS (10 sets, daily range): BP systolic 110–160; BP diastolic 60–79; PULSE 58–66; TEMP 36.3–37; O2SAT 92–97; Ht 170.2 cm; Wt 90.6 kg
[~2017-01-22 05:05] MED LIST changes: +AMOX500C3 PO; -CYCL10TA6 PO; -DIPH25CA5 PO; +DIPH25CA65 PO; +MAGNESIUM PO; -OXYC1TAB3 PO
[2017-01-22] MEDS ORDERED: LACTATED RINGER'S 1000ML 1,000 ML IV SCH (06:00)
[2017-01-22] MEDS ORDERED: BUPIVACAINE 0.5 % 5 MG/1 ML MPF 30ML VIAL ONE (06:35)
[2017-01-22] MEDS ORDERED: MIDAZOLAM HCL 1 MG/ML 2ML VIAL ONE (06:35)
[2017-01-22] MEDS ORDERED: DEXAMETHASONE SOD INJ 4 MG/ML VIAL ONE (06:35)
[2017-01-22] MEDS ORDERED: BACITRACIN 50000 UNIT VIAL ONE (06:35)
[2017-01-22] MEDS ORDERED: LIDOCAINE HCL 2% 2 ML VIAL (20MG/ML) ONE (06:35)
[2017-01-22] MEDS ORDERED: ONDANSETRON INJ 2 MG/ML 2 ML VIAL ONE (06:35)
[2017-01-22] MEDS ORDERED: PROPOFOL IV EMULSION 10 MG/ML 20 ML VIAL IV ONE (06:35)
[2017-01-22] MEDS ORDERED: FENTANYL CITRATE INJ 50 MCG/1 ML 2 ML VIAL ONE ×2 (06:36→07:09)
--- NOTE | 2017-01-22 06:46 | History & Physical Bridge Note ---
H&P Re-Evaluation Bridge Note: I have examined the patient, reviewed the History & Physical and in the interval since the performance of the History & Physical I have noted the following changes of clinical significance: No changes noted pt marked, family at bedside
[2017-01-22] MEDS ORDERED: LARYING-O-JET KIT (LTA) ONE ×2 (07:05)
[2017-01-22] MEDS ORDERED: METOCLOPRAMIDE HCL INJ 5 MG/ML 2 ML VIAL ONE (07:07)
[2017-01-22] MEDS ORDERED: CEFAZOLIN SOD 1 GM VIAL ONE ×2 (07:07→07:09)
[2017-01-22] MEDS ORDERED: SODIUM CHLORIDE 0.9% INJ 10 ML VIAL ONE (07:09)
[2017-01-22] MEDS ORDERED: SUCCINYLCHOLINE CHLORIDE 20 MG/ML 10 ML VIAL IV ONE (07:24)
[2017-01-22] MEDS ORDERED: EpHEDrine SULFATE 50MG/5ML SYR ONE (07:24)
[2017-01-22] MEDS ORDERED: NALOXONE HCL 0.4 MG/1 ML VIAL/CARP IV PRN (07:30)
[2017-01-22] MEDS ORDERED: LABETALOL HCL IV 5 MG/ML 20ML IV PRN (07:30)
[2017-01-22] MEDS ORDERED: FENTANYL CITRATE INJ 50 MCG/1 ML 2 ML VIAL IV PRN (07:30)
[2017-01-22] MEDS ORDERED: FLUMAZENIL 0.1 MG/1 ML 10 ML VIAL IV PRN (07:30)
[2017-01-22] MEDS ORDERED: ATROPINE SULFATE 0.1 MG/ML 5ML SYR IV PRN (07:30)
[2017-01-22] MEDS ORDERED: MEPERIDINE HCL 25 MG/ML CARP IV PRN (07:30)
[2017-01-22] MEDS ORDERED: EpHEDrine SULFATE INJ 50 MG/ML AMP IV PRN (07:30)
[2017-01-22] MEDS ORDERED: HYDROmorphone INJ 2 MG/ML SYR/VIAL IV PRN (07:30)
[2017-01-22] MEDS ORDERED: PHENYLEPHRINE 100MCG/ML 5ML SYR IV PRN (07:30)
[2017-01-22] MEDS ORDERED: ONDANSETRON INJ 2 MG/ML 2 ML VIAL IV PRN ×2 (07:30→08:30)
--- NOTE | 2017-01-22 08:22 | [facility] Operative Report ---
Operative Report Operative Date Jan 22, 2017. Pre-Operative Diagnosis incisional hernia Post-Operative Diagnosis incisional hernia Procedure(s) Performed Open Incisional Hernia Repair with SurgiMesh and ProLite Mesh Surgeon Dr. Fernando Rebollar Invoice Coder Surgeon(s) Hieu Arellano PA-C Estimated Blood Loss 5ml Findings very lax abd wall defect seth 5 cm diameter Specimens none per surgeon Dr. Fernando Rebollar Drains 19 calin per stab Anesthesia 1 % xyl seth 10cc op field Disposition Recovery Room / PACU Description of Procedure po note dictated confirmation number [id number] I attest to the content of the Intraoperative Record and any orders documented therein. Any exceptions are noted below.
[2017-01-22] MEDS ORDERED: MoRPHine SULFATE 4 MG/ML 1 ML CARP\\VIAL IV PRN (08:30)
[2017-01-22] MEDS ORDERED: PANTOprazole SOD 40 MG TAB PO PRN (08:30)
--- NOTE | 2017-01-22 09:16 | Anesthesiology Progress Note ---
Anesthesia Post Op Note Date & Time Jan 22, 2017 at 09:15 Vital Signs Pain Intensity: 2 Vital Signs Past 12 Hours Date Time Temp Pulse Resp B/P (MAP) Pulse Ox O2 Delivery O2 Flow Rate FiO2 01/22/17 09:00 36.8 64 16 132/65 96 Nasal Cannula 2 01/22/17 08:50 59 16 138/57 99 Oxymask 10 01/22/17 08:40 36.4 61 16 130/66 99 Oxymask 10 01/22/17 08:31 36.4 72 16 148/71 99 Oxymask 10 01/22/17 05:29 37 63 20 160/75 (103) 94 Room Air Notes Mental Status: alert / awake / arousable, participated in evaluation Pt Amnestic to Procedure: Yes Nausea / Vomiting: adequately controlled Pain: adequately controlled Airway Patency, RR, SpO2: stable & adequate BP & HR: stable & adequate Hydration State: stable & adequate Anesthetic Complications: no major complications apparent
--- NOTE | 2017-01-22 09:36 | OPERATIVE REPORT ---
DATE OF OPERATION: 01/22/2017 PREOPERATIVE DIAGNOSES: Incisional hernia. POSTOPERATIVE DIAGNOSIS: Same with defect approximately 5 cm in diameter. PROCEDURE: Repair of incisional hernia open with Surgimesh approximately 7 cm in diameter preperitoneal intraabdominally and Marlex mesh onlay circumferentially covering the defect for approximately 5 cm. SURGEON: Dr. Rebollar. GLASS WASHER: Trevor Arellano PA-C OPERATION AND FINDINGS: SUMMARY: The patient was brought into the operating room under general anesthesia, the abdomen was prepped with Betadine solution scrub and properly draped. Systemic antibiotics were given. We made an incision pretty much through the old scar which was around the umbilicus superiorly. This incision was used at the time of her right colon resection. At that time the patient had an umbilical hernia that we included in our incision, but obviously was not the appropriate time to place any mesh, therefore she had a recurrence in that area. Once we dissected subcutaneous tissue, we could identify that the hernial defect as she felt clinically was extending between 6 and 9 o'clock position. Hernia defect itself was removed to the abdominal musculature which the defect itself was about 5 cm in diameter. We took the hernial sac out and actually underneath there were no adhesions. We could see the small bowel, but the patient had a very lax abdominal wall. Initially, I thought about placing a large piece of Surgimesh underneath intraabdominally and tacking it to the abdominal wall. We brought in a 15 cm piece of Surgimesh which I cut around to about 12 [address] to place intraabdominally, but it did not feel comfortable that we had enough suspension to the abdominal wall to a prevent any hernia coming between sutures. At this point, I took it out and cut it to about 7 cm. At this point, we were circumferentially sutured it overlapping the defect about 2 cm with two #1 PDS placing silky side intraabdominally, smooth side to the hernial defect. Once we accomplished this, we knew the defect itself which was quite lax came together. I closed it with interrupted #1 PDS. At this point, we scored the abdominal wall and abdominal fascia all the way around to the point that we were well away from the initial defect but as stated the patient had a very lax abdominal wall, therefore I elected to overlap the whole area, bringing in a 6 x 6 piece of Marlex which we cut to approximately 4 x 4 inches in size and onlaid it well beyond the defect, tacked to the anterior abdominal wall fascia as an onlay with #1 PDS. The area was checked for hemostasis and appeared satisfactory. A few interrupted sutures were used to control some bleeding. The wound was then closed by placing a 19 Mic drain through a stab wound inferior to the incision and placed in the operative field and attached to skin edges with 2-0 silk and then 2-0 Dexon was used in multiple layer closed and approximated the skin edges, 3-0 Dexon and vicki applied. The procedure was tolerated well by the patient. Estimated blood loss approximately 5 mL. The patient was taken to recovery room in good condition. I attest to the content of the Intraoperative Record and any orders documented therein. Any exception s are noted below.
[2017-01-22] MEDS ORDERED: IV FLUIDS COMPLETED PRN (10:00)
[2017-01-22] MEDS: LACTATED RINGER'S 1000ML 1,000 ML IV SCH ×2 (10:15→18:32)
[2017-01-22] MEDS: OXYCODONE/ACETAMINOPHEN 5-325 TAB PO PRN ×3 (10:21→21:41)
[2017-01-22] MEDS: ASPIRIN 81 MG ECTAB PO SCH (10:33)
[2017-01-22] MEDS: CLONAZEPAM 0.5 MG TAB PO SCH ×2 (13:33→20:21)
[2017-01-22] MEDS: CEFAZOLIN IV 1,000 MG in DEXTROSE 5% 50ML 50 ML IV SCH ×2 (13:33→21:40)
[2017-01-23 03:39] VITALS: BP 116/63; PULSE 60; TEMP 36.4; O2SAT 95
[2017-01-23] MEDS: OXYCODONE/ACETAMINOPHEN 5-325 TAB PO PRN ×2 (04:07→08:31)
[2017-01-23] MEDS: LACTATED RINGER'S 1000ML 1,000 ML IV SCH (04:07)
[2017-01-23] MEDS: CEFAZOLIN IV 1,000 MG in DEXTROSE 5% 50ML 50 ML IV SCH (05:30)
[2017-01-23] MEDS ORDERED: OXYC-57 PO (07:26)
--- NOTE | 2017-01-23 07:31 | Discharge Instructions ---
Discharge Instructions Date of Service Jan 23, 2017. Admission Reason for Admission: Incisional Hernia Discharge Discharge Diagnosis / Problem: hernia repair Discharge Goals Goal(s): Decrease discomfort Activity Recommendations Activity Limitations: as noted below Lifting Limitations: no more than 10 pounds Shower/Bathe: no limitations Driving or Machine Use: 1 week . Instructions / Follow-Up Instructions / Follow-Up Dr. Rebollar in 1 week, call [phone] to schedule or if you have any questions Current Hospital Diet Patient's current hospital diet: Full Liquid Diet Discharge Diet Recommended Diet: Regular Diet Procedures Procedures Performed: Open Incisional Hernia Repair with SurgiMesh and ProLite Mesh Pending Studies Studies pending at discharge: no Medical Emergencies . Who to Call and When: Medical Emergencies: If at any time you feel your situation is an emergency, please call 911 immediately. . Non-Emergent Contact Non-Emergency issues call your: Surgeon Call Non-Emergent contact if: you have a fever, temperature is above 101.5, your pain is not controlled, wound has increased drainage, wound has increased redness, you have any medication questions . "Provider Documentation" section prepared by Hieu Arellano. . VTE Core Measure Inpt VTE Proph given/why not?: SCD's [place] Drug Monitoring Program Search Results: no issues identified
[2017-01-23 07:56] VITALS: BP 148/84; PULSE 55; TEMP 36.6; O2SAT 95
[2017-01-23 07:57] VITALS: O2SAT 95
[2017-01-23] MEDS: CLONAZEPAM 0.5 MG TAB PO SCH (08:31)
[2017-01-23] MEDS: ASPIRIN 81 MG ECTAB PO SCH (08:32)
--- NOTE | 2017-01-23 09:03 | Discharge Summary ---
Discharge Summary Date of Service Jan 23, 2017. Admission Date/Reason Jan 22, 2017 at 08:32 Incisional Hernia. Discharge Date/Disposition Jan 23, 2017 Home Diagnosis Principal Diagnosis: Incisional hernia Secondary Diagnoses/Problems: 1. GERD 2. Anxiety Procedure(s) Performed Open Incisional Hernia Repair with SurgiMesh and ProLite Mesh Medication Reconciliation New Medications: Oxycodone/Acetaminophen 5MG/325MG (Percocet 5MG/325MG) Tab 1-2 TABLETS PO Q4H PRN for Pain, #30 TAB Continued Medications: Amoxicillin (Amoxil) 500 Mg Cap 500 MG PO BID, #21 CAP FOR TOOTH ISSUES-SEEING DENTIST 01/15/17 Aspirin (Aspirin Ec) 81 Mg Tab 81 MG PO QAM Carboxymethylcellulose Sodium (Refresh Tears) 0.5 % Eliazar 1 DROP OPB DAILY PRN for DRY EYES Cholecalciferol (Vitamin D 1000 Unit) 1,000 Unit Cap 1000 INTER.UNIT PO QAM, CAP Clobetasol Propionate (Clobetasol Propionate) 0.05 % Oint 1 APPLN TOP WK PRN for PRN Clonazepam (Klonopin) 0.5 Mg Tab 0.5 MG PO TID Diphenhydramine Hcl (Benadryl Allergy) 25 Mg Cap 1 CAP PO HS for 30 Days, #30 CAP Ibuprofen (Advil) 200 Mg Tab 600 MG PO QAM PRN for Pain, TAB Pantoprazole (Protonix) 40 Mg Tab 40 MG PO QAM PRN for PRN, TAB [Magnesium] () 1 TAB PO HS Admission Physical Exam As per Admitting History & Physical. Hospital Course 66 y/o female with incisional hernia taken to the OR for elective repair. She had a primary 5 cm defect and a second smaller defect superior to that. A Surgimesh underlay was used for the primary defect and a marlex overlay used to cover both defects. She was transferred to the floor for overnight observation. In the morning she was tolerating diet and oral analgesics. Mic drainage was 5 cc and this was removed. The incision was clean and dry and abdomen was soft. She was stable for discharge. Discharge Instructions Follow-up in [address] Rebollar Please refer to the electronic Patient Visit Report (Discharge Instructions) for additional information.
--- NOTE | 2017-01-23 09:05 | Surgery Progress Note ---
Surgery Progress Note Date of Service Jan 23, 2017. Subjective Post OP Day: 1 + feeling well, + pain controlled, + diet (regular), No nausea Objective Vital Signs: Date Time Temp Pulse Resp B/P (MAP) Pulse Ox O2 Delivery O2 Flow Rate FiO2 01/23/17 07:57 95 Room Air 01/23/17 07:56 36.6 55 16 148/84 (105) 95 Room Air 01/23/17 03:39 36.4 60 16 116/63 (80) 95 Room Air 01/22/17 23:45 Room Air 01/22/17 22:45 36.4 64 16 124/65 (84) 96 Room Air 01/22/17 18:43 36.4 66 18 135/77 (96) 94 Room Air 01/22/17 16:30 97 Room Air 01/22/17 14:50 36.4 58 18 117/72 (87) 94 Nasal Cannula 2.0 01/22/17 12:29 36.3 60 16 110/60 (77) 94 2.0 01/22/17 11:30 36.4 59 18 129/61 (83) 92 Nasal Cannula 2.0 01/22/17 10:28 36.7 61 16 144/79 (100) 93 Nasal Cannula 2.0 01/22/17 09:54 36.5 65 18 136/76 (96) 94 Nasal Cannula 2.0 01/22/17 09:30 36.7 65 16 146/72 (96) 94 Nasal Cannula 2.0 01/22/17 09:30 94 Nasal Cannula 2.0 01/22/17 09:30 Nasal Cannula Physical Exam: Mic drainage (5 cc overnight) Abdomen: non distended, soft Incision(s): clean, dry Laboratory Results: Results Past 24 Hours Test 01/23/17 05:47 Range/Units Assessment & Plan s/p incisional hernia repair doing well drain removed seen with Dr. Rebollar ok for discharge
[2017-01-23 09:07] VITALS: BP 148/84; PULSE 55; TEMP 36.6; O2SAT 95
== END 2017-01-23 09:55 | disposition home or self-care (01) ==
LOC: C.ACU 05:05 → C.MSN 08:32 → ENRESERV 08:54
PROVIDERS: ADMIT Surgery; ATTEND Surgery
DX: K43.2 Incisional hernia without obstruction or gangrene (principal); Z86.010 Personal history of colon polyps; F41.9 Anxiety disorder, unspecified; F32.9 Major depressive disorder, single episode, unspecified; I10 Essential (primary) hypertension; Z90.710 Acquired absence of both cervix and uterus; Z87.891 Personal history of nicotine dependence; K21.9 Gastro-esophageal reflux disease without esophagitis; K44.9 Diaphragmatic hernia without obstruction or gangrene; Z79.82 Long term (current) use of aspirin; Z98.41 Cataract extraction status, right eye; Z98.42 Cataract extraction status, left eye; M19.90 Unspecified osteoarthritis, unspecified site; Z87.442 Personal history of urinary calculi; E66.9 Obesity, unspecified

== ENCOUNTER 2017-06-07 08:01 | Emergency (ER) | payer BC ==
[~2017-06-07] VITALS: Ht 170.2 cm; Wt 90.9 kg
[~2017-06-07 08:01] MED LIST changes: +OXYC-57 PO
[2017-06-07 08:07] VITALS: TEMP 36.8; Ht 170.2 cm; Wt 90.9 kg
[2017-06-07] MEDS ORDERED: LPR25 PO (08:29)
--- NOTE | 2017-06-07 10:41 | DIAGNOSTIC IMAGING REPORT ---
ULTRASOUND LEFT LOWER EXTREMITY VENOUS CLINICAL HISTORY: Left knee pain. COMPARISON STUDY: No priors. TECHNIQUE: Real-time, grayscale, and color Doppler sonography of the deep veins of the left lower extremity was performed from the inguinal crease to the calf. Compression and augmentation were utilized. FINDINGS: There is no sonographic evidence of deep venous thrombosis identified in the left lower extremity. The common femoral, superficial femoral, and popliteal veins are patent and normally compressible. The greater saphenous vein and the profunda femoris vein at the junction with the common femoral vein are clear. The visualized calf veins are patent. A complex popliteal cyst measures 6.5 x 3.2 x 5.3 cm. A joint effusion is suspected. IMPRESSION: 1. There is no sonographic evidence of deep venous thrombosis identified in the left lower extremity. 2. Complex popliteal cyst. 3. Suspect a joint effusion. Electronically signed by: Kirill Malin M.D. 06/07/2017 10:40 AM Dictated Date/Time: 06/07/2017 10:39 AM
--- NOTE | 2017-06-07 11:17 | EMERGENCY ROOM VISIT NOTE ---
History Report prepared by Arlene: Amber Chavez Under the Supervision of: Diana SarmientoO. First contact with patient: 08:10 Chief Complaint: KNEEPAIN Stated Complaint: LEFT KNEE- PAIN, SWELLING History of Present Illness The patient is a 67 year old female who presents to the Emergency Room with complaints of persistent left knee pain that began at the beginning of May. The patient rates her discomfort am 8/10 in severity. The patient states that she did not experience any trauma before the pain. She notes that on May 16 she was given a shot of Cortisone, noting her x-ray showed arthritis. The patient states that her pain worsens with movement and exercise. She expressed difficulty walking. The patient denies having an ultrasound of her knee done. Source of History: patient Onset: May Position: knee (left) Quality: other (knee pain) Timing: other (persistent) Modifying Factors (Worsening): movement, other (walking) Review of Systems See HPI for pertinent positives & negatives. A total of 10 systems reviewed and were otherwise negative. Past Medical & Surgical Medical Problems: (1) History of - hypertension (2) Ventral hernia Family History FHx: gallbladder disease Kidney disease Kidney stones Social History Smoking Status: Former Smoker Alcohol Use: none Drug Use: none Marital Status: Housing Status: lives with family Occupation Status: retired Current/Historical Medications Scheduled Aspirin (Aspirin Ec), 81 MG PO QAM Cholecalciferol (Vitamin D 1000 Unit), 1,000 INTER.UNIT PO QAM Clonazepam (Klonopin), 0.5 MG PO TID Diphenhydramine Hcl (Benadryl Allergy), 1 CAP PO HS Metoprolol Tartrate (Lopressor), 25 MG PO BID Scheduled PRN Carboxymethylcellulose Sodium (Refresh Tears), 1 DROP OPB DAILY PRN for DRY EYES Clobetasol Propionate (Clobetasol Propionate), 1 APPLN TOP WK PRN for PRN Ibuprofen (Advil), 600 MG PO QAM PRN for Pain Pantoprazole (Protonix), 40 MG PO QAM PRN for PRN Allergies Coded Allergies: BEE STING (Verified Allergy, Intermediate, ITCHY, STARTS TO BLACK OUT, ) Celecoxib (Verified Allergy, Intermediate, RASH, 01/22/17) Corticosteroids (Verified Adverse Reaction, Intermediate, FEELS "WEIRD.", 01/22/17) Naproxen (Verified Adverse Reaction, Intermediate, HEART RACES, 01/22/17) Physical Exam Vital Signs Date Time Temp Pulse Resp B/P (MAP) Pulse Ox O2 Delivery O2 Flow Rate FiO2 06/07/17 10:09 50 17 164/67 93 Room Air 06/07/17 08:07 36.8 46 20 187/66 95 Room Air Physical Exam CONSTITUTIONAL/VITAL SIGNS: Reviewed / noted above. GENERAL: Non-toxic in appearance. INTEGUMENTARY: Warm, dry, and [place]. HEAD: Normocephalic. EYES: without scleral icterus or trauma. ENT/OROPHARYNX: clear and moist. LYMPHADENOPATHY/NECK: Is supple without lymphadenopathy or meningismus. RESPIRATORY: Lungs clear and equal. CARDIOVASCULAR: Regular rate and rhythm. GI/ABDOMEN: Soft and nontender. No organomegaly or pulsatile mass. No rebound or guarding. Normal bowel sounds. EXTREMITIES: Warm and well perfused. No palpable effusion. Normal range of motion. No redness or increased warmth. BACK: No CVA tenderness. NEUROLOGICAL: Intact without focal deficits. PSYCHIATRIC: normal affect. MUSCULOSKELETAL: Normally developed with good muscle tone. Medical Decision & Procedures ER Provider Diagnostic Interpretation: Radiology results as stated below per my review and radiologist interpretation: ULTRASOUND LEFT LOWER EXTREMITY VENOUS CLINICAL HISTORY: Left knee pain. COMPARISON STUDY: No priors. TECHNIQUE: Real-time, grayscale, and color Doppler sonography of the deep veins of the left lower extremity was performed from the inguinal crease to the calf. Compression and augmentation were utilized. FINDINGS: There is no sonographic evidence of deep venous thrombosis identified in the left lower extremity. The common femoral, superficial femoral, and popliteal veins are patent and normally compressible. The greater saphenous vein and the profunda femoris vein at the junction with the common femoral vein are clear. The visualized calf veins are patent. A complex popliteal cyst measures 6.5 x 3.2 x 5.3 cm. A joint effusion is suspected. IMPRESSION: 1. There is no sonographic evidence of deep venous thrombosis identified in the left lower extremity. 2. Complex popliteal cyst. 3. Suspect a joint effusion. Electronically signed by: Kirill Malin M.D. 06/07/2017 10:40 AM ED Course 0828: Previous medical records were reviewed. The patient was evaluated in room B06. A complete history and physical examination was performed. 0945: I reevaluated the patient and she was resting comfortably. 1126: I reevaluate the patient, who was resting comfortably. I discussed the results and findings with the patient. She verbalized agreement of the treatment plan. The patient was discharged home. Medical Decision Differential diagnosis: Etiologies such as DVT, musculoskeletal, infection, joint effusion, trauma, lymphedema, idiopathic, CHF, as well as others were entertained.. This is a 67-year-old female who presents to the ED with a chief complaint of left knee pain. The patient states that she has had the pain in the left knee since May 16. She saw Dr. Feliciano. She has continued pain despite receiving a cortisone shot. The patient presents for additional evaluation of this. She reports some discomfort and a palpable mass behind her left knee. Her ultrasound did not show DVT with reveals a popliteal cyst. The patient was told the results. She was told to follow-up with Dr. Feliciano for this. She is felt to be stable for discharge. Medication Reconcilliation Current Medication List: was personally reviewed by me Blood Pressure Screening Patient's blood pressure: Elevated blood pressure Blood pressure disposition: Referred to PCP Impression Primary Impression: Popliteal cyst Scribe Attestation The scribe's documentation has been prepared under my direction and personally reviewed by me in its entirety. I confirm that the note above accurately reflects all work, treatment, procedures, and medical decision making performed by me. Departure Information Dispostion Home / Self-Care Referrals Isaac Alexander M.D. (PCP) Forms HOME CARE DOCUMENTATION FORM, IMPORTANT VISIT INFORMATION Patient Instructions My [facility] Additional Instructions Your ultrasound reveals a popliteal cyst. This is likely the reason for your symptoms. Follow-up with Dr. Feliciano for recheck and further assessment.
[2017-06-07 11:27] VITALS: BP 154/66; PULSE 53; O2SAT 96
== END 2017-06-07 11:27 | disposition home or self-care (01) ==
LOC: C.EDB 08:02
DX: M71.22 Synovial cyst of popliteal space [Baker], left knee (principal); I10 Essential (primary) hypertension; M17.12 Unilateral primary osteoarthritis, left knee; Z79.82 Long term (current) use of aspirin; Z87.891 Personal history of nicotine dependence; Z84.1 Family history of disorders of kidney and ureter

== ENCOUNTER → 2017-08-02 | Outpatient (CLI) | payer BC ==
[~2017-08-02] MED LIST changes: -AMOX500C3 PO; +LPR25 PO; -MAGNESIUM PO; -OXYC-57 PO
[2017-08-02 13:55] LABS: BASO % 1.1 %; BASO ABS # 0.07 K/uL (0-0.2); EOS ABS # 0.31 K/uL (0-0.5); HEMATOCRIT 38.3 % (37-47); HEMOGLOBIN 12.3 g/dL (12.0-16.0); IG# 0.02 K/uL (0.00-0.02); LYMPH % 37.3 %; LYMPH ABS # 2.31 K/uL (1.2-3.4); MEAN CELL VOLUME 93.6 fL (80-100); MEAN CORPUSCULAR HEMOGLOBIN 30.1 pg (25-34); MEAN CORPUSCULAR HGB CONC 32.1 g/dl (32-36); MEAN PLATELET VOLUME 10.2 fL (7.4-10.4); MONO % 8.2 %; MONO ABS # 0.51 K/uL (0.11-0.59); NEUT % 48.1 %; NEUT ABS # 2.98 K/uL (1.4-6.5); PLATELET COUNT 310 K/uL (130-400); RED CELL DISTRIBUTION WIDTH CV 14.5 % (11.5-14.5); RED CELL DISTRIBUTION WIDTH SD 49.3 fL (36.4-46.3)
[2017-08-02 14:31] LABS: ALBUMIN 3.7 gm/dl (3.4-5.0); AST/SGOT 14 U/L (15-37); BLOOD UREA NITROGEN 21 mg/dl (7-18); CALCIUM 9.5 mg/dl (8.5-10.1); CARBON DIOXIDE 26 mmol/L (21-32); CHOLESTEROL 220 mg/dl (0-200); GLUCOSE 93 mg/dl (70-99); POTASSIUM 4.3 mmol/L (3.5-5.1); SODIUM 141 mmol/L (136-145)
[2017-08-02 14:42] LABS: ALKALINE PHOSPHATASE 59 U/L (45-117); ALT/SGPT 40 U/L (12-78); LDL CHOLESTEROL (DIRECT) 149 mg/dl; TOTAL PROTEIN 7.5 gm/dl (6.4-8.2)
== END | disposition home or self-care (01) ==
LOC: C.LABSPEC 13:13
PROVIDERS: ATTEND Internal Medicine
DX: I10 Essential (primary) hypertension (principal); R78.5 Finding of other psychotropic drug in blood; R53.83 Other fatigue

== ENCOUNTER → 2017-08-31 | Outpatient (CLI) | payer BC | END | disposition home or self-care (01) | LOC: C.LAB 13:29 | PROVIDERS: ATTEND Internal Medicine | DX: R19.7 Diarrhea, unspecified (principal) ==

== ENCOUNTER → 2018-02-18 | Outpatient (CLI) | payer BC ==
[~2018-02-18] MED LIST changes: -CLON0.5T3 PO; +KLN/5 PO
--- NOTE | 2018-02-19 13:38 | MAMMOGRAPHY REPORT ---
BILATERAL DIGITAL SCREENING MAMMOGRAM TOMOSYNTHESIS WITH CAD: 02/18/2018 CLINICAL HISTORY: Routine screening. TECHNIQUE: The study was acquired using full field digital technology and interpreted from soft copy. Breast tomosynthesis in addition to standard 2D mammography was performed. Current study was also ev aluated with a Computer Aided Detection (CAD) system. COMPARISON: Comparison is made to exams dated: 06/19/2016 mammogram, 06/14/2015 mammogram, 06/08/2014 mammogram, 06/01/2013 mammogram, 05/30/2012 mammogram, and 05/29/2011 mammogram - [facility]. BREAST COMPOSITION: There are scattered areas of fibroglandular density in both breasts. FINDINGS: No significant interval change comparing to prior mammograms. Stable intramammary lymph no jose f in the right upper outer quadrant posteriorly. A linear scar marker overlies the left axillary r egion, denoting the location of sebaceous cyst removal. No new suspicious mass, architectural distort ion or cluster of microcalcifications is seen. IMPRESSION: ACR BI-RADS CATEGORY 1: NEGATIVE There is no mammographic evidence of malignancy. A 1 year screening mammogram is recommended.( 019) The patient will receive written notification of the results. Some breast cancers are not detected with mammography. A negative mammographic report should not gary y biopsy if a clinically suggestive mass is present. So Augustine M.D. ay/:02/18/2018 19:23:51 [employer] Superintendent: RT Sage(R)(M), [facility] letter sent: Normal 1/2 BI-RADS Code: ACR BI-RADS Category 1: Negative
== END | disposition home or self-care (01) ==
LOC: C.MAMM 13:06
PROVIDERS: ATTEND Obstetrics & Gynecology
DX: Z12.31 Encounter for screening mammogram for malignant neoplasm of breast (principal)

== ENCOUNTER 2024-04-23 11:55 | Observation (INO) ==
--- NOTE | 2024-03-23 13:31 | PAT Medication Instructions ---
Medication Instructions Date of Service March 23, 2024 Home Medications aspirin 81 mg chewable tablet 81 mg PO DAILY carboxymethylcellulose sodium 0.5 % eye drops (Refresh Tears) 1 drp ophthalmic (eye) BID clonazepam 1 mg tablet 0.5 mg PO TID magnesium oxide 500 mg capsule 500 mg PO DAILY rosuvastatin 20 mg tablet 20 mg PO QAM amlodipine 5 mg tablet 5 mg PO QAM lisinopril 40 mg tablet 40 mg PO QAM ropinirole 0.25 mg tablet 1 mg PO HS Hylands Leg Cramps 1 dose PO HS Z Quil 1 dose PO HS hydrochlorothiazide 12.5 mg tablet 12.5 mg PO QAM metoprolol tartrate 25 mg tablet 12.5 mg PO BID ASK your prescriber and surgeon aspirin 81 mg chewable tablet 81 mg PO DAILY STOP taking 2 weeks before surgery (or as soon as possible if surgery is within 2 weeks) Hylands Leg Cramps 1 dose PO HS DO NOT take the morning of surgery magnesium oxide 500 mg capsule 500 mg PO DAILY lisinopril 40 mg tablet 40 mg PO QAM hydrochlorothiazide 12.5 mg tablet 12.5 mg PO QAM Take morning of surgery With a small sip of water, OTHERWISE NOTHING TO EAT OR DRINK AFTER MIDNIGHT: carboxymethylcellulose sodium 0.5 % eye drops (Refresh Tears) 1 drp ophthalmic (eye) BID clonazepam 1 mg tablet 0.5 mg PO TID rosuvastatin 20 mg tablet 20 mg PO QAM amlodipine 5 mg tablet 5 mg PO QAM metoprolol tartrate 25 mg tablet 12.5 mg PO BID Take evening before surgery carboxymethylcellulose sodium 0.5 % eye drops (Refresh Tears) 1 drp ophthalmic (eye) BID clonazepam 1 mg tablet 0.5 mg PO TID ropinirole 0.25 mg tablet 1 mg PO HS Z Quil 1 dose PO HS metoprolol tartrate 25 mg tablet 12.5 mg PO BID Other Notes If you have any questions please call us at [phone] or [phone] or [phone] or [phone]
--- NOTE | 2024-04-01 09:33 | Anesthesiology Consultation ---
Date of Service April 01, 2024 Assessment & Plan (1) Encounter for pre-operative examination: - workload note sent to [facility] regarding pre-op BUN/creatinine, response 04/02/24: "kidney function is stable. Proceed." - CKD III, GFR < 30: normal saline ordered with 500 cc bolus. - Outpatient joint assessment: Patient is currently scheduled for inpatient pathway. If re-evaluated and patient/surgeon requests outpatient pathway, patient is not recommended candidate for outpatient joint program from an esthesia standpoint. Chart Review Chart Review: Acceptable Risk for Surgery and Patient seen in Pre Admission Testing Teaching & Discussion Pre-Anesthesia Teaching/Discussion Notes: Instructed NPO after midnight before surgery, except medications with 15 cc of water. Medication instructions provided according to the PAT guidelines. History Surgery Operation Date: 04/22/24 07:15 Proposed Procedures p Left Total Knee Arthroplasty - Umer Feliciano MD Height/Weight Height: 5 ft 7 in Weight: 91.7 kg Allergies Allergy/AdvReac Type Severity Reaction Status Date / Time bee venom protein (honey bee) Allergy Unknown ITCHY, Verified 03/20/24 10:39 STARTS TO BLACK OUT celecoxib Allergy Unknown RASH Verified 03/20/24 10:39 naproxen Allergy Unknown pt doesn't Verified 03/20/24 10:39 remember Corticosteroids AdvReac Intermediate "edgy, Verified 04/01/24 09:50 (Glucocorticoids) irritated" Medications Home Medications Medication Instructions Recorded Confirmed Last Taken aspirin 81 mg chewable tablet 81 mg PO DAILY 05/16/20 03/20/24 Unknown carboxymethylcellulose sodium 0.5 1 drp ophthalmic (eye) BID 05/16/20 03/20/24 Unknown % eye drops (Refresh Tears) clonazepam 1 mg tablet 0.5 mg PO TID 05/16/20 03/20/24 Unknown magnesium oxide 500 mg capsule 500 mg PO QPM 05/16/20 04/01/24 Unknown rosuvastatin 20 mg tablet 20 mg PO QAM 01/30/23 03/20/24 Unknown amlodipine 5 mg tablet 5 mg PO QAM 02/15/23 03/20/24 Unknown lisinopril 40 mg tablet 40 mg PO QAM 02/15/23 03/20/24 Unknown ropinirole 0.25 mg tablet 1 mg PO 12/09/23 03/20/24 Unknown Hylands Leg Cramps 1 dose PO 03/20/24 03/20/24 Unknown Z Quil 1 dose PO HS 03/20/24 03/20/24 Unknown hydrochlorothiazide 12.5 mg tablet 12.5 mg PO QAM 03/20/24 03/20/24 Unknown metoprolol tartrate 25 mg tablet 12.5 mg PO BID 03/20/24 03/20/24 Unknown docusate sodium 50 mg capsule 50 mg PO QPM 04/01/24 04/01/24 Unknown pantoprazole 40 mg tablet,delayed 40 mg PO QAM 04/01/24 04/01/24 Unknown release psyllium husk 0.4 gram capsule 0.4 g PO HS 04/01/24 04/01/24 Unknown (Metamucil) Additional Notes: Patient was instructed Past Medical History Medical History (Updated 04/01/24 @ 12:20 by Elzbieta Wilson PA-C) Anxiety CKD (chronic kidney disease) stage 3, GFR 30-59 ml/min Constipation Degenerative arthritis of knee, bilateral Degenerative arthritis of lumbar spine GERD (gastroesophageal reflux disease) controlled, stable per pt History of colonic polyps History of COVID-19 (07/2023) denies hospitalization, symptoms resolved History of depression History of lichen planus HTN (hypertension) controlled, stable per pt Hyperlipidemia Left knee DJD Restless leg syndrome Sensorineural hearing loss (SNHL) of both ears Patient denies h/o stroke, seizures, heart attack, heart failure, DM, blood clots/DVTs or blood transfusions. Exercise / Class Metabolic Activity II 4-5 Yardwork/Stairs/Walk up hill (ambulates with cane, denies chest discomfort or shortness of breath with one flight of stairs) Past Family History Family History Other No pertinent family history Past Surgical History Surgical History (Updated 04/01/24 @ 09:52 by Elzbieta Wilson PA-C) History of bowel resection d/t colon polyp size per patient-denies h/o cancer History of colonoscopy History of hernia repair History of hysterectomy History of left cataract surgery History of repair of left rotator cuff History of right cataract surgery Past Anesthesia History No Family Hx of Anesthesia Complications and Other (awareness during cataract surgery) History of PONV No Hx of PONV and No Hx of Motion Sickness Social History Smoking Status: Former smoker Do You Dip or Chew Tobacco: No Smoking End Date: 30 yr ago Hx Alcohol Use: No Hx Substance Use: No substance use type: does not use Review of Systems Patient denies chest pain, shortness of breath, dyspnea on exertion, snoring, witnessed apneas, fever, chills, cough, wheezing, or palpitations. Physical Exam Vital Signs Vitals BP 135/78 P 56 TEMP 97.9 SP02 96% on RA RESP 18 Physical Patient resting comfortably in chair in no acute distress, alert and oriented, responding appropriately throughout visit Full cervical extension range of motion without pain TMD 3.5 finger breadths Mallampati Score 2 Dentition: removable plate, denies chipped or loose teeth, caps/crowns, implants or bridges Lungs: normal respiratory effort. Good air movement, clear throughout to auscultation, no adventitious breath sounds Cardiac: regular rate and rhythm, no murmurs noted Carotid arteries: negative bruit bilat Lab Results Anesthesia Preop Results Results Anesthesia Widget: WBC 5.97 K/ul (4.8-10.8) 04/01/24 Hgb 11.2 g/dl (12.0-16.0) L 04/01/24 Hct 33.8 % (37.0-47.0) L 04/01/24 Plt 256 K/uL (130-400) 04/01/24 Na 140 mmol/L (136-145) 04/01/24 K 4.9 mmol/L (3.5-5.1) 04/01/24 Cl 107 mmol/L (98-107) 04/01/24 CO2 26 mmol/L (21-32) 04/01/24 BUN 34 mg/dl (6-23) H 04/01/24 Creat 1.76 mg/dl (0.6-1.2) H 04/01/24 Glucose Level 95 mg/dl (70-99(Fasting)) 04/01/24 PT 10.3 Seconds (9.0-12.0) 04/01/24 PTT 24 Seconds (21-31) 04/01/24 INR 0.9 (0.9-1.1) 04/01/24 Blood Type A Positive 04/01/24 Antibody Screen NEGATIVE 04/01/24 Testing Laboratory Results Baseline creatinine 1.6 per [facility] records. Electrocardiogram Date: 04/01/24 Sinus bradycardia with 1st degree AV block with premature atrial complexes, rate 54 bpm Chest X-Ray Date: 04/01/24 No acute process. Echocardiogram Date: 01/16/23 EF 65% No LV regional wall motion abnormalities Significant asymmetric basal septal hypertrophy of the elderly Grade I diastolic dysfunction No significant valvular abnormalities
--- NOTE | 2024-04-13 19:02 | History & Physical Report ---
Date of Service April 13, 2024 Assessment & Plan (1) Left knee DJD: 74-year-old female with longstanding increasing bilateral knee pain discomfort consistent with advanced arthritis. She has failed conservative treatment. She is got some baseline underlying renal insufficiency which is stable. She would like to have her left knee replaced. Plan: Orgran taken to the operating room and do a left total knee replacement for the risks and benefit of this procedure explained to the patient. She understands and desires to proceed. Informed consent was obtained. Will be careful not to give too much in the way of NSAIDs. She already takes a baby aspirin once a day we will do that twice a day for DVT prophylaxis. She has been we plan on discharge to home with home health. She lives with her daughter and grandson. (2) Hypertension: History of Present Illness Chief Complaint: . Bilateral knee pain and discomfort the left side greater than the right. Primary Care Provider: Stacia Mendosa PA-C . Patient is a 74-year-old long-term patient mine who now presents for surgical treatment of her left knee. She had a long history of knee problems that gradually gotten worse over time. She has been through extensive conservative treatment which became less successful over time. The left knee bothers her more than the right. She is having difficulty walking any distances. Is global pain. She like to have her left knee fixed. Of note, patient was recently in the emergency room with increasing swelling in his leg. She had an ultrasound done which showed no DVT. 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 Allergies Allergy/AdvReac Type Severity Reaction Status Date / Time bee venom protein (honey bee) Allergy Unknown ITCHY, Verified 03/20/24 10:39 STARTS TO BLACK OUT celecoxib Allergy Unknown RASH Verified 03/20/24 10:39 naproxen Allergy Unknown pt doesn't Verified 03/20/24 10:39 remember Corticosteroids AdvReac Intermediate "edgy, Verified 04/01/24 09:50 (Glucocorticoids) irritated" Home Medications Medication Instructions Recorded Confirmed Type aspirin 81 mg chewable tablet 81 mg PO DAILY 05/16/20 03/20/24 History carboxymethylcellulose sodium 0.5 1 drp ophthalmic (eye) BID 05/16/20 03/20/24 History % eye drops (Refresh Tears) clonazepam 1 mg tablet 0.5 mg PO TID 05/16/20 03/20/24 History magnesium oxide 500 mg capsule 500 mg PO QPM 05/16/20 04/01/24 History rosuvastatin 20 mg tablet 20 mg PO QAM 01/30/23 03/20/24 History amlodipine 5 mg tablet 5 mg PO QAM 02/15/23 03/20/24 History lisinopril 40 mg tablet 40 mg PO QAM 02/15/23 03/20/24 History ropinirole 0.25 mg tablet 1 mg PO HS 12/09/23 03/20/24 History Hylands Leg Cramps 1 dose PO HS 03/20/24 03/20/24 History Z Quil 1 dose PO HS 03/20/24 03/20/24 History hydrochlorothiazide 12.5 mg tablet 12.5 mg PO QAM 03/20/24 03/20/24 History metoprolol tartrate 25 mg tablet 12.5 mg PO BID 03/20/24 03/20/24 History docusate sodium 50 mg capsule 50 mg PO QPM 04/01/24 04/01/24 History pantoprazole 40 mg tablet,delayed 40 mg PO QAM 04/01/24 04/01/24 History release psyllium husk 0.4 gram capsule 0.4 g PO HS 04/01/24 04/01/24 History (Metamucil) Past Med/Surg History Problem List Cellulitis of left lower leg (Acute) Encounter for pre-operative examination Left knee DJD Lumbar spondylosis Degenerative arthritis of lumbar spine Vitamin D deficiency Chronic kidney disease with active medical management without dialysis, stage 3 (moderate) Hypertension Anxiety Degenerative arthritis of knee, bilateral Hamstring tendinitis at origin Lichen sclerosus Ventral hernia Colon polyp (Acute) Medical History CKD (chronic kidney disease) stage 3, GFR 30-59 ml/min GERD (gastroesophageal reflux disease) controlled, stable per pt History of COVID-19 (07/2023) denies hospitalization, symptoms resolved Degenerative arthritis of lumbar spine Left knee DJD Degenerative arthritis of knee, bilateral Constipation History of colonic polyps History of lichen planus History of depression Anxiety Hyperlipidemia Restless leg syndrome HTN (hypertension) controlled, stable per pt Sensorineural hearing loss (SNHL) of both ears Surgical History History of colonoscopy History of left cataract surgery History of right cataract surgery History of repair of left rotator cuff History of hysterectomy History of hernia repair History of bowel resection d/t colon polyp size per patient-denies h/o cancer Family History Other No pertinent family history Social History Smoking Status: Former smoker Tobacco Type: Cigarettes Do You Dip or Chew Tobacco: No; Hx Alcohol Use: No Hx Substance Use: No Preferred Language: [place]i Communication Ability: Effective Visual Impairment: No Limitations Hearing Ability: Normal Crm Administrator Required: No Beliefs That Will Affect Care: None marital status: / Current Living Situation: Family Current Living Situation Comment: daughter and 16 yr old grandson. current occupational status: retired current occupation: former legal mediator How many Children do You have Comment: 3 Feels Safe at Home: Yes Assistive Devices: Cane, Glasses and Other Review of Systems All systems reviewed & are unremarkable except as noted in HPI & below. Physical Exam . Physical examination reveals a pleasant elderly female. Looks to be in pretty good health. Examination of both knees reveals a patient ambulates independently. She is got a slight valgus alignment to her left knee with a moderate soft tissue envelope. Range of motion about 5-1 20. There is no instability. No particular pain with hip motion. She is neurologically intact. Constitutional WD/WN, vitals as above Neck trachea midline, no thyromegaly Respiratory normal respiratory effort, lungs clear to auscultation Cardiovascular RRR, no murmur, no edema Gastrointestinal (Abdomen) normal bowel sounds, soft, nontender, no hepatosplenomegaly Results & Data Results & Data Laboratory Results . Diagnostic Findings . X-rays of the left knee were reviewed. Shows advanced left knee tricompartment DJD. She is got medial and lateral disease most severe laterally. She had diffuse osteopenia. Significant patellofemoral disease. PG Care Time/CCT Total # of Minutes Spent Total Time Spent with Patient: Total time spent is greater than 50% in coordination of care (as documented) at patient's floor/unit and/or counseling patient: Coding Level of Care Code None Diagnoses Left knee DJD M17.12 Hypertension I10
[~2024-04-23 11:55] MED LIST changes: -ASPI81TA28 PO; +BUPIVACAINE 0.5 % 5 MG/1 ML PF 10ML VIAL ONE; -CARB0.5D28 OPB; -CHOL100027 PO; -DIPH25CA65 PO; -IBUP-1050 PO; -KLN/5 PO; -LPR25 PO; -NF34 TOP; -PANT40TA PO; +ROPIVACAINE 0.5% 5 MG/ML 30 ML VIAL ONE
[2024-04-23] MEDS ORDERED: MIDAZOLAM HCL 1 MG/ML 2ML VIAL ONE (12:40)
[2024-04-23] MEDS: ACETAMINOPHEN 500 MG TAB PO SCH ×3 (13:02→20:25)
[2024-04-23] MEDS: METOCLOPRAMIDE HCL 10 MG TABLET PO SCH ×2 (13:02→17:17)
[2024-04-23] MEDS: FAMOTIDINE 20 MG TAB PO SCH ×2 (13:02→17:18)
[2024-04-23] MEDS: SODIUM CHLORIDE 0.9% 1000ML IV SCH ×2 (13:03→17:17)
[2024-04-23] MEDS ORDERED: ATROPINE SULFATE 0.1 MG/ML 10ML SYR IV PRN (13:06)
[2024-04-23] MEDS ORDERED: ONDANSETRON INJ 2 MG/ML 2 ML VIAL IV PRN ×2 (13:06→16:55)
[2024-04-23] MEDS ORDERED: ePHEDrine sulfate 50 MG/ML AMP IV PRN (13:06)
[2024-04-23] MEDS ORDERED: HYDROmorphone INJ 1 MG/ML SYRINGE IV PRN (13:06)
[2024-04-23] MEDS: LR 60ML/HR IV SCH ×2 (13:09→17:18)
--- NOTE | 2024-04-23 13:17 | History & Physical Bridge Note ---
Date of Service April 23, 2024 History & Physical Bridge Note I have examined the patient, reviewed the History & Physical and in the interval since the performance of the History & Physical I have noted the following changes of clinical significance: no changes noted
[2024-04-23] MEDS ORDERED: fentaNYL citrate PF 100 MCG/2 ML VIAL ONE ×2 (13:30→14:06)
[2024-04-23] MEDS: ceFAZolin 2000MG 2,000 MG/15 ML SYR IV SCH ×3 (13:44→20:29)
[2024-04-23] MEDS ORDERED: ONDANSETRON INJ 2 MG/ML 2 ML VIAL ONE (14:03)
[2024-04-23] MEDS ORDERED: PROPOFOL IV EMULSION 10 MG/ML 20 ML VIAL IV ONE (14:03)
[2024-04-23] MEDS ORDERED: LIDOCAINE 2% 2 ML VIAL/AMP(20MG/ML) INFIL ONE (14:03)
[2024-04-23] MEDS: ROPIV 0.5% 246mg, Ketorolac 30mg, EPINEPHrine 0.5mg in NSS INFIL SCH ×2 (14:20→17:17)
[2024-04-23] MEDS: ORTHO JOINT ANESTHETIC ONE (14:21)
[2024-04-23] MEDS ORDERED: DEXAMETHASONE SOD INJ 4 MG/ML VIAL ONE (14:27)
[2024-04-23] MEDS: TRANEXAMIC ACID 1,000 MG **IV Intra-op IV SCH ×2 (14:30→17:15)
--- NOTE | 2024-04-23 15:27 | Operative Report ---
PG Post Operative Report Pre & Post Diagnosis Operation Date: 04/23/24 14:20 Pre-Op Diagnosis: Left Knee Degenerative Joint Disease Post-Op Diagnosis: Left Knee Degenerative Joint Disease I identified the patient and participated in the time-out.: Yes Procedure Operation Date: 04/23/24 14:20 Actual Procedures p Left Total Knee Arthroplasty(Left) - Umer Feliciano MD Surgeon Umer Feliciano MD Direct Care Staffer Phillip Howard PA-C Estimated Blood Loss 50 Findings Consistent with Post-Op Diagnosis Operative findings reveal advanced left knee DJD. She had extensive grade 4 [id number] disease of the lateral and patellofemoral compartments. Moderate- sized joint effusion. Specimens Left knee sent for pathology. Anesthesia Type General Regional Complications none Disposition Accompanied Patient To Recovery: No Indications Patient is a 74-year-old female whose had a long history of bilateral knee pain discomfort is gradually gotten worse over the years. She been through extensive conservative treatments became less successful over time. X-ray showed left knee advanced tricompartment DJD. She elected proceed with total knee arthroplasty. Description of Procedure Operative implants consist of: 1 Biomet Vanguard size 62.5 left posterior stabilized femoral component. 2. Biomet size 67 tibial tray. 3. 12 mm posterior stabilized polyethylene insert. 4. 31 x 8 all poly patella. The patient was taken to the operating room identified placed on the operating table in supine position but all contact areas were appropriately padded. IV antibiotics were by the anesthesia team. A spinal anesthetic had been attempted in the holding area but unsuccessful. She did have a saphenous nerve block placed. A general anesthetic was implemented. A Coreas catheter was placed in sterile fashion. A left thigh turn was then placed and the left lower extremity was then prepped and draped in usual sterile fashion. The left leg was elevated and exsanguinated with use of an Esmarch and turn was placed at 300 mmHg. An anterior approach to the left knee was then performed through a longitudinal incision centered over the patella. Sharp dissection was Through subcutaneous tissue down the extensor mechanism. A medial parapatellar arthrotomy incision was made. Some subperiosteal dissection was carried out medially. The fat pad was dissected beneath patella tendon. The lateral patellofemoral ligament was released. Patella subluxated laterally and the knee was flexed. The osteophytes taken off distal femur. The ACL and PCL were then released from distal femur and the tibia subluxated anteriorly. The external tibial alignment jig was then placed on the anterior face the tibia and adjusted 12 mm medially. Proximal tibial cut was made remove about 2 to 3 mm of bone from the medial side. The tibia sized to a size 67. Attention drawn the femur. The distal femur was entered with a sharp drill. Intramedullary canal was suction. A left 5 degree valgus cutting guide was placed. Distal femoral cutting block was pinned in place. Distal femoral cut was made to take an additional 3 mm of bone off distal femur. The knee was then brought out into extension I did some release of the IT band and posterior lateral structures to equalize extension gap. The knee was then sized and sized to a size 62.5. The 8 cutting block was placed parallel to the epicondylar axis which was 6 degrees of external rotation. The anterior cut, anterior chamfer, posterior cut, posterior chamfer cuts were made. The box cutting guide was placed in the just slight lateral box cut was made. The knee was flexed. The remnants of the medial lateral menisci were excised. The osteophytes taken off the posterior aspect of femur. I did release the popliteus tendon in order to equalize the flexion gap. The trial femoral component was placed. The tibial tray was pinned Jennifer external rotation and the drill and stem punch were used to create defect in proximal tibia for the tibial tray. Knee was then trialed and the 12 mm insert fit most appropriately. Attention drawn the patella. The patella was cleaned of all soft tissue. Patella thickness measured 18 mm in thickness was cut down to 12. Was sized to a size 31 patella. The lug holes were drilled for a 31 patella. The lateral osteophytes removed. Patella button was placed. Knee was taken through range of motion patella tracked nicely with no thumbs test. Attention drawn to place the permanent components. All trial components were removed. Bone plug was placed into this femur limit blood loss. Double batch Palacos G cement was mixed. Biomet Vanguard size 62.5 left posterior stabilized femoral component, size 67 tibial tray, a 12 mm posterior Byce polyethylene insert, and a 31 x 8 all poly patella then cemented in place. The knee was brought out into full extension till cement hardened. Final cement check was then performed. The pericapsular tissues were injected with total of 100 cc of Ortho mix. The patient did receive 1 g tranexamic acid. The tourniquet was then let down for tourniquet time 49 minutes. Hemostasis assured use electrocautery. Extensor Metros then closed with combination 1 PDS suture #1 Vicryl suture in a [id number] fashion. Extensor Meclomen checked found to be intact the subcutaneous tissue was then closed with 2 Dexon suture in a buried interrupted fashion skin was closed skin vicki. Leg was then cleaned and dried and a sterile dressing with Xeroform, 4 fours, sterile cast padding, Dimitri bandage were applied. Patient then brought out of general anesthesia. Transferred to the recovery room in stable condition. The patient tolerated the procedure well and there were no complications. I attest to the content of the Intraoperative Record and any orders documented therein. Any exceptions are noted below.
[2024-04-23] MEDS: fentaNYL citrate PF 100 MCG/2 ML VIAL IV PRN (15:48)
--- NOTE | 2024-04-23 16:00 | XRay Report ---
XR knee LT 1 or 2V routine HISTORY: 74 years-old Female Surgical Post Op left knee arthroplasty COMPARISON: Radiographs February 06, 2024 TECHNIQUE: 2 views of the left knee FINDINGS: Total joint arthroplasty with patellar resurfacing. Anterior midline skin vicki with expected posto perative soft tissue swelling and deep tissue air. No acute fracture or dislocation. IMPRESSION: Total joint arthroplasty with expected postoperative changes. ACT 112: Negative or not required by law. The above report was generated using voice recognition software. It may contain grammatical, syntax o r spelling errors. Electronically signed by: Robbie Murguia M.D. 04/23/2024 3:59 PM
--- NOTE | 2024-04-23 16:04 | Anesthesiology Progress Note ---
Date of Service April 23, 2024 Anesthesia Post Procedure Vital Signs Vital Signs: Temp Pulse Pulse Resp BP Pulse Ox O2 Del Method 04/23/24 15:55 90 20 125/67 97 Nasal Cannula 04/23/24 15:45 74 12 130/53 L 88 L Room Air 04/23/24 15:35 93 H 17 120/52 L 96 Oxymask 04/23/24 15:25 94 H 13 124/76 96 Oxymask 04/23/24 15:23 96.8 F L 95 H 16 119/60 94 Oxymask 04/23/24 13:19 97.9 F 72 20 150/113 H 96 Room Air O2 Flow Rate 04/23/24 15:55 2 04/23/24 15:45 04/23/24 15:35 2 04/23/24 15:25 5 04/23/24 15:23 5 04/23/24 13:19 Pain Intensity Left Leg: Pain Intensity: 4 Transfer of Care Handoff Completed per policy Notes Mental Status: alert / awake / arousable and participated in evaluation Patient Amnestic to Procedure: Yes Nausea / Vomiting: adequately controlled Pain: adequately controlled Airway Patency, RR, SpO2: stable & adequate BP & HR: stable & adequate Hydration State: stable & adequate Anesthetic Complications: no major complications apparent and Pt Satisfied with anesthetic care
[2024-04-23] MEDS ORDERED: NO NSAIDS SCH (16:55)
[2024-04-23] MEDS ORDERED: bisacodyL 10 MG SUPP PR PRN (16:55)
[2024-04-23] MEDS ORDERED: METOCLOPRAMIDE HCL INJ 5 MG/ML 2 ML VIAL IV PRN (16:55)
[2024-04-23] MEDS ORDERED: NALOXONE HCL 0.4 MG/1 ML VIAL/CARP IV PRN (16:55)
[2024-04-23] MEDS ORDERED: HYDROmorphone INJ 0.5 MG/0.5 ML SYR IV PRN (16:55)
[2024-04-23] MEDS ORDERED: ALUMINUM/MAGNESIUM SUSP 30 ML UDC PO PRN (16:55)
[2024-04-23] MEDS ORDERED: MAGNESIUM HYDROXIDE SUSP 30 ML UDC PO PRN (16:55)
[2024-04-23] MEDS: SODIUM CHLORIDE 0.9% 500 ML IV SCH ×2 (17:09→17:15)
[2024-04-23] MEDS: DOCUSATE SODIUM 100 MG CAP PO SCH (20:26)
[2024-04-23] MEDS: rOPINIRole HCL 1 MG TABLET PO SCH (20:26)
[2024-04-23] MEDS: SENNA 8.6 MG TAB PO SCH ×2 (20:26)
[2024-04-23] MEDS: MAGNESIUM OXIDE 400 MG TAB PO SCH (20:27)
[2024-04-23] MEDS: PSYLLIUM or GUAR GUM FIBER 4GM PACKET PO SCH (20:27)
[2024-04-23] MEDS: ASPIRIN 81 MG ECTAB PO SCH (20:27)
[2024-04-23] MEDS: METOPROLOL TARTRATE 25 MG TAB PO SCH (20:28)
[2024-04-23] MEDS: ARTIFICIAL TEARS OP SCH (20:33)
[2024-04-23] MEDS: clonazePAM 0.5 MG TAB PO SCH (20:34)
[2024-04-23] MEDS: TRANEXAMIC ACID / 0.7% NACL 1,000 MG/100 ML BAG IV SCH (20:41)
[2024-04-23] MEDS ORDERED: NON-FORMULARY MEDICATION (Docusate Sodium 50 mg Capsule) PO SCH (21:00)
[2024-04-23] MEDS ORDERED: HYLANDS LEG CRAMPS PO SCH (21:00)
[2024-04-23] MEDS ORDERED: Z QUIL PO SCH (21:00)
[2024-04-23] MEDS: ASCORBIC ACID 500 MG TAB PO SCH (21:13)
[2024-04-23] MEDS: ALLERGY Noted to ORDERED Medication SCH (21:44)
[2024-04-23] MEDS: oxyCODONE HCL IR 5 MG TAB (IMMEDIATE RELEASE) PO PRN (23:45)
[2024-04-24 06:26] LABS: Hematocrit (blood only) 28.8 % (37.0-47.0); Hemoglobin 9.4 g/dl (12.0-16.0); Mean Corpuscular Hemoglobin 30.8 pg (25.0-34.0); Mean Corpuscular Hgb Conc 32.6 g/dL (32.0-36.0); Mean Corpuscular Volume 94.4 fL (80.0-100.0); Mean Platelet Volume 9.6 fL (9.4-12.4); Platelet Count 254 K/uL (130-400); RDW Coefficient of Variation 13.4 % (11.5-14.5); Red Blood Count 3.05 M/uL (4.20-5.40)
[2024-04-24 06:38] LABS: BUN Creatinine Ratio 18.6 (10-20); Calcium 9.3 mg/dl (8.6-10.3); Creatinine Clr Calc Pharmacy 28.4 ml/min; Potassium 4.3 mmol/L (3.5-5.1)
--- NOTE | 2024-04-24 07:01 | Orthopedic Progress Note ---
Date of Service April 24, 2024 Assessment & Plan (1) Status post left knee replacement: Plan: 74-year-old female postop day 1 from a left knee replacement. She is doing pretty well. Pains controlled. She is neurologically intact. She got some underlying kidney disease which looks to be stable. Plan: 1. DVT prophylaxis including thigh-high teds, SCDs, aspirin twice a day. 2. PT/OT. She can weight-bear as tolerated. Left total knee protocol. 3. Pain control. Doing okay with current pain regimen. 4. Chronic kidney disease. Creatinine is fairly stable. Continue to hold and limit NSAIDs. 5. Disposition plan to discharge home with some home health hopefully later today if she does okay in therapy. (2) Chronic kidney disease with active medical management without dialysis, stage 3 (moderate): (3) Hypertension: Admission and Anticipated Discharge Date Admission Date: April 23, 2024 Subjective 74-year-old female postop day 1 from left knee replacement. She is doing pretty well. Some pain but manageable. Had a pretty good night. No chest pain or shortness of breath. Not feeling dizzy or lightheaded. Physical Exam Physical Exam: Physical exam shows a pleasant middle-age female patient lying bed looks pretty comfortable this morning. Examination left leg reveals to be well aligned. Dressings clean dry and intact. She can dorsiflex and plantarflex her foot appropriately. Respiratory: normal respiratory effort, lungs clear to auscultation Cardiovascular: RRR, no murmur, no edema Gastrointestinal (Abdomen): normal bowel sounds, soft, nontender, no hepatosplenomegaly Results & Data Vital Signs (Past 12 Hours) Vital Signs Temp Pulse Resp BP Pulse Ox O2 Del Method O2 Flow Rate 04/24/24 04:44 36.7 C 64 18 101/58 L 95 Room Air 04/23/24 23:37 36.5 C 71 16 113/67 95 Room Air 04/23/24 20:18 36.4 C L 99 H 18 124/69 97 Nasal Cannula 1 04/23/24 19:00 36.4 C L 99 H 18 123/71 97 Nasal Cannula 1 Laboratory Results Hemoglobin is 9.4. Hematocrit 28.8. Electrolytes are stable. Creatinine is 1.99 around baseline.
[2024-04-24 07:13] VITALS: RESP 16; O2SAT 97
[2024-04-24] MEDS: PANTOprazole 40 MG TAB PO SCH (07:49)
[2024-04-24] MEDS: lisinopril 40 MG TAB PO SCH (07:49)
[2024-04-24] MEDS: hydroCHLOROthiazide 25 MG TAB PO SCH (07:50)
[2024-04-24] MEDS: amLODIPine BESYLATE 5 MG TAB PO SCH (07:50)
[2024-04-24] MEDS: MULTIVITAMIN TAB PO SCH (07:50)
[2024-04-24] MEDS: dexAMETHasone 10 MG in SYRINGE 0 ML IV SCH (07:51)
[2024-04-24] MEDS: ROSUVASTATIN CALCIUM 20 MG TAB PO SCH (07:51)
[2024-04-24 11:04] VITALS: PULSE 59; TEMP 97.5
[2024-04-24 11:14] VITALS: BP 101/58
--- NOTE | 2024-04-28 06:38 | Discharge Summary ---
Date of Service April 28, 2024 Admission HPI (Per Admitting) . Patient is a 74-year-old long-term patient mine who now presents for surgical treatment of her left knee. She had a long history of knee problems that gradually gotten worse over time. She has been through extensive conservative treatment which became less successful over time. The left knee bothers her more than the right. She is having difficulty walking any distances. Is global pain. She like to have her left knee fixed. Of note, patient was recently in the emergency room with increasing swelling in his leg. She had an ultrasound done which showed no DVT. 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 Admission Exam (Per Admitting) . Physical examination reveals a pleasant elderly female. Looks to be in pretty good health. Examination of both knees reveals a patient ambulates independently. She is got a slight valgus alignment to her left knee with a moderate soft tissue envelope. Range of motion about 5-1 20. There is no instability. No particular pain with hip motion. She is neurologically intact. Principal Diagnosis Same as "Discharge Diagnosis" noted below under Discharge Instructions. Discharge Data Procedures Performed Operation Date: 04/23/24 14:20 Actual Procedures p Left Total Knee Arthroplasty(Left) - Umer Feliciano MD Ordered Studies 04/23/24 05:00 US - OR guided needle placemen Routine Hospital Course (1) Status post left knee replacement: This is a 74 year old patient admitted on 04/23/24 and underwent total knee arthroplasty. She tolerated the procedure well and there were no complications. Transferred to the PACU post op and later to the orthopedic floor for further care. She was given ancef for antibiotic prophylaxis. She was also given BABATUNDE stockings, SCDs, and aspirin for DVT prophylaxis. Hemoglobin, hematocrit, and vital signs were monitored during her hospital stay and remained stable. Did not require any blood transfusions. There were no complications during her hospital stay. By post op day #1 the patient was tolerating a regular diet, pain was reasonably controlled with oral pain medicine, and she was participating in physical therapy. On post op day #1 the patient was discharged home and set up with home health care. She was given printed discharge instructions including prescriptions for extra strength tylenol, aspirin, cefadroxil, zofran, oxycodone, and senokot. Continue physical therapy, weight bearing as tolerated. Continue BABATUNDE stockings. Follow up approximately 2 weeks post op or sooner if there are problems or concerns. Discharge Plan Discharge Items Patient Disposition: Home - Home Health Services Reason For Visit: Left Knee Degenerative Joint Disease Discharge Diagnosis: Left Knee Replacement Activity: Per Instructions section Weightbearing: Full weightbearing Non-emergency contact: Surgeon Call non-emergency contact if: you have any medication questions Follow-up/Referrals: Stacia Mendosa PA-C [Primary Care Provider] - Diet: Regular Addtl Attending Provider Instructions: ACTIVITY RECOMMENDATIONS: Diet: * You may resume previous diet. Physical Therapy: * You will go to physical therapy three times each week for four to six weeks after your surgery in order to regain your knee range of motion and to retrain your knee to work properly. * It is just as important to make sure you are getting your knee perfectly straight as it is to regain your knee bend. * Taking a pain pill an hour before therapy can help you have a more productive and comfortable therapy session. Home Exercise: * You were shown a series of exercises (heel props, heel slides, etc.) in the hospital. Do these exercises three to four times each day including the exercises you were shown in physical therapy. Walking: * Get up and walk several times each day. For the first four weeks, try not to stand or walk for more than one hour at a time. If you do stand or walk for more than one hour, you will not hurt anything, but your knee and leg will likely swell. * As you feel comfortable, you may change from the walker or crutches to a cane and then to independent walking. MEDICATIONS: New Medicine: * You will likely be taking one or more of these medications: 1. Oxycodone - A quick and shorter-acting pain medication. Take one to two tablets every six hours to lessen your pain. 2. Aspirin - Thins your blood to lessen the chance of forming a blood clot. * The most common side effects of pain medicine and iron are nausea and constipation. If nausea or constipation is too much of a problem or if you have any questions about your new medicines or doses, call [facility] at . We will try to help you manage these issues. "VERY IMPORTANT TO READ AND REVIEW" Pain: * The immediate post-operative period after knee replacement surgery is often quite painful. * You are given a prescription for pain medicine. You should take it, as directed, when you need it, especially before physical therapy and before going to bed. Pain that interferes with sleep is very common and can last several months. * You will likely need pain medicine for the first four to six weeks. It will not stop all of the pain. The pain will lessen and as you feel better, you may change to milder pain medicine such as Tylenol. * The most common side effects of pain medicine are nausea and constipation, so don't take more than you need. SPECIAL CARE INSTRUCTIONS: TEDs/Elastic Stockings: * The white elastic stockings help limit swelling and prevent blood clots from forming in your legs. The more you wear them, the more they work. * Wear them for six weeks after knee replacement surgery and four weeks after partial knee replacement. Incision Site Care: * Remove dressing postoperative day 2 and then shower. Keep direct shower pressure off the incision site. * After showering, cover vicki with dry gauze and change daily or more frequently if the dressing is getting saturated with drainage. * Use the BABATUNDE stockings to hold dressing in place. DO NOT apply tape on the skin. * May completely stop using bandage if wound is dry and no drainage * Vicki are removed between 2 and 3 weeks post-op. If your follow-up appointment is made before 2 weeks, please have your appointment re- scheduled. It is too early to remove the vicki. Prevention of Infection: * Take antibiotics one hour before any dental cleaning, dental work, urological procedure, gastrointestinal procedure or any invasive surgery in order to prevent your new joint from getting infected. * You may get the antibiotics from the doctor performing the procedure or you may call our office at [phone] before and we will call in a prescription to the pharmacy of your choice. Things to Watch For: * Drainage from the incision site that occurs more than one week after your surgery. * Severely increased knee/leg pain or swelling. * Increased redness at the incision site. * Fever above 102 degrees Fahrenheit. * Unusual chest pain or shortness of breath. * Unusual pain or burning with urination. Call [facility] at [phone] with any of the above problems or if you have any questions about your medicines or recovery. FOLLOW UP VISIT: Make an appointment to see your doctor for approximately two weeks after surgery for a progress check and staple removal by calling the office at [phone]. Pending Studies at Discharge: No Stand-Alone Forms: My [facility], Smoking Cessation Medications and DC Order Prescriptions: New aspirin 81 mg Tablet,Delayed Release (Dr/Ec) 81 mg PO BID 45 Days Qty: 90 0RF Rx Instructions: Take to prevent blood clots. Continued amlodipine 5 mg tablet 5 mg PO QAM lisinopril 40 mg tablet 40 mg PO QAM oxycodone 5 mg tablet 5 - 10 mg PO Q6 PRN (Reason: pain) Qty: 40 0RF Rx Instructions: Take as needed for pain ondansetron 4 mg tablet,disintegrating 4 mg PO Q8 PRN (Reason: nausea) Qty: 20 1RF Rx Instructions: Take as needed for nausea sennosides [Senokot] 8.6 mg tablet 8.6 mg PO BID 14 Days Qty: 28 0RF Rx Instructions: Take two times a day to prevent/treat constipation acetaminophen [Tylenol Extra Strength] 500 mg tablet 1,000 mg PO TID 30 Days Qty: 180 0RF Rx Instructions: Take 3 times per day to lessen pain. cefadroxil 500 mg capsule 500 mg PO BID 7 Days Qty: 14 0RF Rx Instructions: Take 1 cap twice a day to prevent infection rosuvastatin 20 mg tablet 20 mg PO QAM ropinirole 0.25 mg tablet 1 mg PO HS aspirin 81 mg tablet,chewable 81 mg PO DAILY Refresh Tears 0.5 % drops 1 drp ophthalmic (eye) BID clonazepam 1 mg tablet 0.5 mg PO TID magnesium oxide 500 mg capsule 500 mg PO QPM metoprolol tartrate 25 mg Tablet 12.5 mg PO BID Z Quil 1 dose PO HS hydrochlorothiazide 12.5 mg tablet 12.5 mg PO QAM Hylands Leg Cramps 1 dose PO HS docusate sodium 50 mg Capsule 50 mg PO QPM pantoprazole 40 mg Tablet,Delayed Release (Dr/Ec) 40 mg PO QAM psyllium husk [Metamucil] 0.4 gram Capsule 0.4 g PO HS No Action cephalexin 500 mg capsule 500 mg PO BID 7 Days Qty: 14 0RF tramadol 50 mg tablet 50 mg PO Q6H PRN (Reason: pain) Qty: 14 0RF Krames/Other Patient Handouts: How Your Knee Works, RICE Admission Data Admit Date/Time: 04/23/24 15:19 Attending Provider: Umer Feliciano Admit Provider: Umer Feliciano Primary Care Provider: Stacia Mendosa Other Providers: [facility],Home Health Other Interventions: Discharge Summary Assessment (RN) Last Done: 04/24/24 11:12
== END 2024-04-24 11:44 | disposition home health service (06) ==
LOC: 3E 11:55 → ASU 11:55
DX: Z87.891 Personal history of nicotine dependence; Z79.899 Other long term (current) drug therapy; M17.12 Unilateral primary osteoarthritis, left knee; Z91.030 Bee allergy status; Z91.018 Allergy to other foods; E78.5 Hyperlipidemia, unspecified; Z88.5 Allergy status to narcotic agent; K21.9 Gastro-esophageal reflux disease without esophagitis; I12.9 Hypertensive chronic kidney disease with stage 1 through stage 4 chronic kidney disease, or unspecified chronic kidney disease; Z79.82 Long term (current) use of aspirin; N18.9 Chronic kidney disease, unspecified